=== PATIENT | female | born 1940 | race Caucasian/White ===

== ENCOUNTER 2019-08-09 09:40 | Emergency (ER) | payer MEDICARE, MEDICAID, SELFPAY ==
[2019-08-09] VITALS (16 sets, daily range): BP systolic 142–178; BP diastolic 54–69; PULSE 46–63; RESP 11–22; TEMP 36.5; O2SAT 95–98
--- NOTE | 2019-08-09 09:41 | W.ED.GENAD ---
Discharge Plan Disposition Patient Disposition: HOME Condition: Good Discharge Details Chief Complaint: GenMedical Clinical Impression: Acute dehydration, Gastritis Primary Care Provider: Shruthi Joya ED Provider: Singh Carter Home Meds and New Rx's Prescriptions: Continued tetrahydrozoline [Visine] 0.05 % Drops 1 drp OPHTHALMIC (EYE) TID RF: 0 amlodipine 2.5 mg Tablet 2.5 mg PO DAILY RF: 0 garlic 1,500 mg Capsule 1,500 mg PO QPC RF: 0 lorazepam 0.5 mg Tablet 0.5 mg PO BID PRNRF: 0 pantoprazole 40 mg Tablet,Delayed Release (Dr/Ec) 40 mg PO DAILY RF: 0 diphenhydramine HCl [Benadryl] 25 mg Capsule 25 mg PO Q6-12H RF: 0 lisinopril 40 mg Tablet 40 mg PO DAILY RF: 0 fluticasone propionate 50 mcg/actuation [place],Suspension 1 spray INTRANASAL DAILY RF: 0 atenolol 50 mg Tablet 50 mg PO DAILY RF: 0 escitalopram oxalate 5 mg/5 mL Solution 5 mg PO DAILY RF: 0 cholecalciferol (vitamin D3) [Vitamin D3] 2,000 unit Tablet 2,000 unit PO DAILY RF: 0 Discharge Instructions Instructions: Gastritis (ED), Dehydration (ED) Additional Instructions: Please make sure you are drinking plenty of fluids throughout the day. Please take the Carafate that your primary care provider has prescribed. Please avoid any spicy foods. If you notice any worsening of your symptoms, or any new symptoms such as vomiting, diarrhea, fever, chills, shortness of breath, chest pain, numbness, weakness, or fainting , please return immediately to the emergency department for reevaluation. Please follow up with your primary care provider as soon as possible for reassessment and reevaluation. As always, it was a pleasure participating in your medical care today. Referrals: Shruthi Joya [Primary Care Provider] - Medical Decision Making This is a 78-year-old female with a past medical history of diabetes, hypertension, high cholesterol, previous breast and uterine cancer with hysterectomy and breast surgery who presents today for evaluation of fatigue. 10 days ago the patient syncopized, she refused EMS transport at that time, since then she has had notable weakness, decrease in appetite, epigastric pain, mild dizziness and lightheadedness. She has had no vomiting or diarrhea. She has had some mild weight loss. She denies chest pain, chest heaviness, chest tightness, or repeat episodes of syncope. She denies any tearing or ripping sensation in her chest. She has no other complaints in particular at this time. She denies any other modifying factors. She denies any dysuria, hematuria, increased urinary frequency, melena, dark tarry stool. Exam demonstrates an obese female with no signs of significant trauma, no evidence of significant head trauma, no focal neurologic deficits. Symptoms are concerning though for various etiologies with her history of cancer new malignancy certainly on the differential, including in the head. Will evaluate for cardiac dysrhythmia or abnormality, gently rehydrate and reassess. Also of note she does have a notable family exposure of mono, she is requesting testing for this which I feel is certainly reasonable. 11:49 AM On reassessment patient is feeling much better, after fluids she feels much more energetic, feels well. Laboratory work-up demonstrates no significant abnormality, white count minimally elevated at 11.27, no significant bandemia. Electrolytes normal, renal function stable, lactate troponin proBNP and TSH and lipase all normal. Urinalysis shows negative nitrites and negative leuk esterase. Patient feels well and feels ready to go home. CT scan of the abdomen per radiology demonstrates no acute process, there is a small lesion in the liver, this may be new. Do recommend outpatient follow-up. CT of the head is negative for acute process. Chest x-ray unremarkable. At this time with the benign work-up, no evidence of acute life-threatening etiology, I do feel that her symptoms may be secondary to mild dehydration. Mild stomach ulcer. She has been given a prescription for Carafate already she is just not yet had a chance to fill it. Will recommend continuation of this. Discussed red flags for which to return. I have extensively reviewed the treatment plan and discharge instructions with the patient and their family. I have addressed all patient concerns at this time. The patient and family was made aware of what symptoms to monitor for that would warrant a return to the emergency department. Discussed the plan with the patient and family, they demonstrate verbal understanding and agreement with our assessment and plan at this time. Additionally with a negative cardiac work-up, and the longevity of her symptoms her symptoms are clinically inconsistent with ACS. HPI General Date/Time Provider Initiated Documentation: 08/09/19 09:40. HPI Narrative: This is a 78-year-old female with a past medical history of diabetes, hypertension, high cholesterol, previous breast and uterine cancer with hysterectomy and breast surgery who presents today for evaluation of fatigue. 10 days ago the patient syncopized, she refused EMS transport at that time, since then she has had notable weakness, decrease in appetite, epigastric pain, mild dizziness and lightheadedness. She has had no vomiting or diarrhea. She has had some mild weight loss. She denies chest pain, chest heaviness, chest tightness, or repeat episodes of syncope. She denies any tearing or ripping sensation in her chest. She has no other complaints in particular at this time. She denies any other modifying factors. She denies any dysuria, hematuria, increased urinary frequency, melena, dark tarry stool. Related Data Home Medications Medication Instructions Recorded Confirmed amlodipine 2.5 mg PO DAILY 08/09/19 08/09/19 atenolol 50 mg PO DAILY 08/09/19 08/09/19 cholecalciferol (vitamin D3) 2,000 unit PO DAILY 08/09/19 08/09/19 [Vitamin D3] diphenhydramine HCl [Benadryl] 25 mg PO Q6-12H 08/09/19 08/09/19 escitalopram oxalate 5 mg PO DAILY 08/09/19 08/09/19 fluticasone propionate 1 spray INTRANASAL DAILY 08/09/19 08/09/19 garlic 1,500 mg PO QPC 08/09/19 08/09/19 lisinopril 40 mg PO DAILY 08/09/19 08/09/19 lorazepam 0.5 mg PO BID PRN 08/09/19 08/09/19 pantoprazole 40 mg PO DAILY 08/09/19 08/09/19 tetrahydrozoline [Visine] 1 drp OPHTHALMIC (EYE) TID 08/09/19 08/09/19 Allergies Allergy/AdvReac Type Severity Reaction Status Date / Time amoxicillin [From Augmentin] Allergy Skin Rash Unverified 08/09/19 10:23 clavulanic acid Allergy Skin Rash Unverified 08/09/19 10:23 [From Augmentin] lactose Allergy Other (See Unverified 08/09/19 10:23 Comment) penicillin V Allergy Skin Rash Unverified 08/09/19 10:23 atorvastatin AdvReac Other (See Unverified 08/09/19 10:23 Comment) buspirone [From BuSpar] AdvReac Other (See Unverified 08/09/19 10:23 Comment) caffeine AdvReac Other (See Unverified 08/09/19 10:23 Comment) doxycycline AdvReac Other (See Unverified 08/09/19 10:23 Comment) erythromycin base AdvReac Other (See Unverified 08/09/19 10:23 Comment) esomeprazole [From Nexium] AdvReac Headache Unverified 08/09/19 10:23 ezetimibe [From Zetia] AdvReac Diarrhea Unverified 08/09/19 10:23 fexofenadine AdvReac Other (See Unverified 08/09/19 10:23 Comment) gluten AdvReac Other (See Unverified 08/09/19 10:23 Comment) hydrochlorothiazide AdvReac Other (See Unverified 08/09/19 10:23 Comment) loratadine AdvReac Other (See Unverified 08/09/19 10:23 Comment) sertraline AdvReac Other (See Unverified 08/09/19 10:23 Comment) Sulfa (Sulfonamide AdvReac Nausea Unverified 08/09/19 10:23 Antibiotics) Review of Systems All systems reviewed & are unremarkable except as noted in HPI and below PFSH Social History Smoking/Tobacco Use Status: Never Alcohol Intake: never Drug use: Never Substance use type: does not use Do you feel safe at home: Yes Do you feel safe in your relationship?: Yes Exam Narrative Exam Narrative: 1.Const: Well-nourished, Well-developed, appearing stated age, obese 2.Eyes: PERRL, no conjunctival injection, and symmetrical lids. 3.ENT: Atraumatic external nose and ears. Dry MM. Neck: Symmetric, trachea midline, No thyromegaly. 4.CVS: +S1/S2, No murmurs or gallops. Peripheral pulses 2+ and equal in all extremities. Brisk capillary refill in all extremities. 5.RESP: Unlabored respiratory effort. Clear to auscultation bilaterally. No wheezes rales or rhonchi 6.GI: Soft, Nondistended, No hepatosplenomegaly. No guarding or rebound. Mild to moderate epigastric pain, right upper quadrant, and left upper quadrant pain reproducible on exam. 7.MSK: Normocephalic/Atraumatic, Extremities w/o deformity or ttp No cyanosis or clubbing, Normal movement of all extremities 8.Skin: Warm, Dry. No rashes or lesions. 9.Neuro: credit manager II-XII grossly intact. Sensation grossly intact, no focal neurologic deficits. No ataxia. 10.Psych: (AAO) x3. Appropriate mood and affect
[2019-08-09 10:20] LABS: Abs Immature Grans 0.04 k/cumm (0.0-0.09); Absolute Basophil Count 0.03 k/cumm (0.0-0.2); Absolute Eosinophil Count 0.02 k/cumm (0.0-0.7); Absolute Monocyte Count 0.78 k/cumm (0.11-0.7); Basophils % 0.3; Eosinophils % 0.2; HCT 43.2 % (36.0-46.0); HGB 14.5 g/dL (12.0-15.5); Immature Grans % 0.4 %; Lymphocytes % 13.8; Mean Corp. HGB Concentration 33.6 g/dL (32.0-36.0); Mean Corpuscular Hemoglobin 30.7 pg (27.0-33.0); Mean Corpuscular Volume 91.5 fL (80-95); Mean Platelet Volume 9.9 fL (8.0-11.0); Monocytes % 6.9; Neutrophils % 78.4; Platelet Count 392 x1000/uL (130-400); RBC 4.72 m/cumm (4.00-5.20); RBC Distribution Width 12.7 % (11.7-14.6); White Blood Cell Count 11.27 k/cumm (4.4-10.8)
[2019-08-09] MEDS: Normal Saline 500 ML IV (10:25)
[2019-08-09 10:27] LABS: Mono Screening Negative (Negative)
[2019-08-09 10:30] LABS: Absolute Lymphocyte Count 1.56 k/cumm (1.2-3.4); Absolute Neutrophil Count 8.84 k/cumm (1.2-6.7)
[2019-08-09 10:41] LABS: ALT 22 U/L (14-59); AST 20 U/L (15-37); Albumin 3.8 g/dL (3.4-5.0); Alkaline Phosphatase 74 U/L (46-116); Anion Gap 11.5 mmol/L (3-11); BUN 14 mg/dL (7-18); Bilirubin, Total 0.6 mg/dL (0.2-1.0); CO2 25.5 mmol/L (21.0-32.0); CREATININE 0.59 mg/dL (0.55-1.02); Calcium 9.2 mg/dL (8.5-10.1); Chloride 101 mmol/L (98-107); Glucose 104 mg/dL (74-106); Lipase 138 U/L (73-393); NT-proBNP 188 pg/mL (<300); Potassium 4.2 mmol/L (3.5-5.1); Sodium 138 mmol/L (136-145); TSH (W/Ref FT4) 2.27 uIU/mL (0.36-3.74); Total Protein 7.6 g/dL (6.4-8.2)
[2019-08-09 10:42] LABS: Troponin I < 0.05 ng/Ml (<0.06)
[2019-08-09 10:54] LABS: Bilirubin Negative (Negative); Blood Trace-intact (Negative); Clarity Clear (Clear); Glucose Negative (Negative); Ketones 15 mg/dL (Negative); Leukocyte Esterase Negative (Negative); Nitrite Negative (Negative); Urobilinogen 0.2 EU/dL (Up TO 0.2)
--- NOTE | 2019-08-09 11:02 | DI.CT_ITS ---
EXAM: CT HEAD WO CLINICAL HISTORY: syncope 10 days ago, fall, now confusion COMPARISON: No exams were available for comparison FINDINGS: Ventricles and sulci are consistent with the patient's age. No acute intracranial hemorrhage or midl ine shift is present. Ventricles are intact. The basilar cisterns are patent. Calvarium is intact. There is mucosal thickening in the left sphenoid sinus. The remaining visualized paranasal sinuses are clear. No fluid levels are seen. The mastoid air cells are well pneumatized. IMPRESSION: No acute intracranial process.
--- NOTE | 2019-08-09 11:05 | DI.CT_ITS ---
EXAM: CT ABDOMEN PELVIS W CLINICAL HISTORY: epigastric pain,wt loss,IBS,hx of uterine breastCA. TECHNIQUE: Imaging Protocol: Axial computed tomography images with coronal and sagittal reformatted images were created and reviewed CONTRAST MATERIAL: Intravenous: Omnipaque 350 Contrast volume:97 mL Oral: No COMPARISON: No exams were available for comparison FINDINGS: ABDOMEN: Lung Bases: Normal where visualized. Liver: Normal density. There is a small cyst in the posterior segment of the right lobe of the liver. There is a round well-circumscribed hypodense lesion in the left lobe of the liver. It is indeterm inate. Gallbladder and biliary tract: Status post cholecystectomy. Dilatation of the extrahepatic bile duct s. This may be related to the cholecystectomy. Pancreas: Normal density, no abnormal calcifications or inflammatory process. Spleen: Normal. Kidneys: Normal size, contour and axis. No radiodense stones or obstructive uropathy. Bilateral renal cysts. No solid renal mass. Adrenal glands: No masses seen. Abdominal Aorta: Atherosclerosis. No aneurysmal dilatation. Incidental note is made of a circum aor tic left renal vein. PELVIS: Bladder: Symmetric distention, no gross wall thickening. Bowel: Colonic diverticulosis but no evidence of acute diverticulitis. No evidence of acute appendic itis. No evidence of bowel obstruction or inflammation. Small hiatal hernia. Peritoneal cavity: No ascites, collection or mesenteric inflammatory response. Moderate-sized fat con taining umbilical hernia Bones: Degenerative changes. Reproductive organs: Status post hysterectomy. Lymph nodes: Unremarkable. Impression: 1. No evidence of an acute abdominal or pelvic process. 2. Hypodense lesion seen in the left lobe of the liver. It is too small for further characterization . Follow-up as clinically appropriate. 3. Status post cholecystectomy and hysterectomy. 4. Colonic diverticulosis but no evidence of acute diverticulitis. 5. These findings were discussed with the emergency department on the date of the examination. DATA REPOSITORY: All CT scans at this facility are submitted to the National Radiology Data Registry (NRDR) Dose Index Registry (DIR) with the [employer] ([employer]). RADIATION OPTIMIZATION: All CT scans at this facility use at least one of these dose optimization te chniques: automated exposure control; mA and/or kV adjustment per patient size (includes targeted exa ms where dose is matched to clinical indication); or iterative reconstruction.
[2019-08-09] MEDS: Omnipaque 350 MG/ML 100 ML BTL IJ (11:13)
--- NOTE | 2019-08-09 11:16 | DI.RAD_ITS ---
EXAM: XR CHEST 2V PA LATERAL INDICATION: fatigue, wt loss, hx of uterine Cancer, r/o mass COMPARISON: No exams were available for comparison TECHNIQUE: 2D digital imaging was performed. FINDINGS: The heart size and pulmonary vasculature are within normal limits. The lungs are clear. No effusion or pneumothorax is identified. There are degenerative changes seen in the spine and the shoulders b ilaterally. There are surgical clips in the right upper quadrant of the abdomen consistent with prio r cholecystectomy. IMPRESSION: No acute pulmonary process.
[2019-08-09] MEDS: Sucralfate 1 GM TAB PO (12:07)
[2019-08-09 13:40] LABS: C & S Indicated? No/Sq. Contamination; Epithelial Cells Many HPF (Negative)
== END 2019-08-09 12:23 | disposition home or self-care (01) ==
PROVIDERS: Emergency Provider Student in an Organized Health Care Education/Training Program; PCP Nurse Practitioner Family
DX: E86.0 Dehydration (principal); K29.70 Gastritis, unspecified, without bleeding; I10 Essential (primary) hypertension; E11.9 Type 2 diabetes mellitus without complications
CPT/HCPCS: 80053; 83690; 93005; 96360; 99285; 70450; 71046; 74177; 81003; 81015; 83605; 83880; 84443; 84484; 85025; 86308; 93010; 99284; J3490

== ENCOUNTER 2019-08-14 12:25 | Observation (INO) | payer MEDICARE, MEDICAID, SELFPAY ==
[2019-08-14 12:33] VITALS: BP 179/66; PULSE 61; RESP 16; TEMP 37; O2SAT 97
--- NOTE | 2019-08-14 12:33 | ED.GENADUL_ITS ---
Discharge Plan Disposition Patient Disposition: [facility] INPATIENT Condition: Stable Discharge Details Chief Complaint: GenMedical Clinical Impression: Dehydration, Poor appetite Primary Care Provider: Shruthi Joya ED Provider: Milagros Marie Home Meds and New Rx's Prescriptions: No Action amlodipine 2.5 mg Tablet 2.5 mg PO DAILY RF: 0 garlic 1,500 mg Capsule 1,500 mg PO QPC RF: 0 lorazepam 0.5 mg Tablet 0.5 mg PO BID PRNRF: 0 diphenhydramine HCl [Benadryl] 25 mg Capsule 25 mg PO Q6-12H RF: 0 lisinopril 40 mg Tablet 40 mg PO DAILY RF: 0 fluticasone propionate 50 mcg/actuation [place],Suspension 1 spray INTRANASAL DAILY RF: 0 atenolol 50 mg Tablet 50 mg PO DAILY RF: 0 cholecalciferol (vitamin D3) [Vitamin D3] 2,000 unit Tablet 2,000 unit PO DAILY RF: 0 folic acid 400 mcg Tablet 0.4 mg PO DAILY RF: 0 Medical Decision Making 1245 -- 78-year-old female with a history of previous breast and uterine cancer as well as a history of PUD, hypertension hyperlipidemia presents with poor appetite and fatigue for the past 2 weeks and episode of anxiety at home today. She states her anxiety feels like a knot in her stomach . She denies any chest pain or shortness of breath, fever, cough, vomiting. She does admit to intermittent episodes of diarrhea. She was seen here 5 days ago for the same complaint and had unremarkable labs and imaging and improved after fluids and discharged home. She was advised to take Carafate and follow-up with PCP for referral possible endoscopy for a possible ulcer. She states she stopped taking the Carafate because it produced too much gas.. She states she started Lexapro within the last week and was taken off this medicine due to these above symptoms by her PCP. She states she has been drinking fluids but has no appetite for eating. She does admit to stress at home. Vitals within normal limits. Afebrile. She appears nontoxic. Lungs clear. Abdomen soft nontender. EKG notes a rate of 53, sinus with no acute ST ischemic changes. Differential diagnosis includes dehydration, UTI, electrolyte abnormality. She had a CT head, chest x-ray as well as abdominal and pelvis CT 5 days ago which were negative. Do not see indication for repeat imaging at this time. Will place an IV, screening labs, urinalysis and give fluids, Pepcid, Zofran and GI cocktail and reassess. 1510 --labs reviewed. Anion gap 12. Ketones in urine. Patient still admits to fatigue and no appetite. She has no complaint of abdominal pain. Patient states she would prefer to stay in the hospital for IV fluids. She does feel that stress and anxiety could be a factor in her poor appetite. She takes Ativan twice daily and believes she could benefit if taking 3 times daily. She does not feel that she can go home as she would likely return when she is unable to eat. 1535 -- d/w hospitalist - accepts pt for admission. Also discussed case with surgery for consideration of possible endoscopy if indicated. Medical Records Medical records reviewed: Yes I reviewed the patient's medical records. Lab Data Lab results reviewed: Yes I reviewed the patient's lab results. Labs: Laboratory Tests Range/Units 08/14/19 08/14/19 08/14/19 13:38 14:20 14:24 WBC (4.4-10.8) k/cumm RBC (4.00-5.20) m/cumm Hgb (12.0-15.5) g/dL Hct (36.0-46.0) % MCV (80-95) fL MCH (27.0-33.0) pg MCHC (32.0-36.0) g/dL RDW (11.7-14.6) % Plt Count (130-400) x1000/uL MPV (8.0-11.0) fL Immature Gran % % Neutrophils % Lymphocytes % Monocytes % Eosinophils % Basophils % Absolute Neutrophils (1.2-6.7) k/cumm Absolute Lymphocytes (1.2-3.4) k/cumm Absolute Monocytes (0.11-0.7) k/cumm Absolute Eosinophils (0.0-0.7) k/cumm Absolute Basophils (0.0-0.2) k/cumm Sodium (136-145) mmol/L 140 Potassium (3.5-5.1) mmol/L 4.0 Chloride (98-107) mmol/L 101 Carbon Dioxide (21.0-32.0) mmol/L 27.0 Anion Gap (3-11) mmol/L 12.0 H BUN (7-18) mg/dL 10 Creatinine (0.55-1.02) mg/dL 0.65 Estimated GFR/1.73 m2 (mL/min/1.73m2) >= 60.00 Glucose (74-106) mg/dL 102 Calcium (8.5-10.1) mg/dL 9.1 Magnesium (1.8-2.4) mg/dL 2.0 Total Bilirubin (0.2-1.0) mg/dL 0.4 AST (15-37) U/L 24 ALT (14-59) U/L 25 Alkaline Phosphatase (46-116) U/L 98 Troponin I (<0.06) ng/Ml 0.06 Total Protein (6.4-8.2) g/dL 7.5 Albumin (3.4-5.0) g/dL 3.8 Lipase (73-393) U/L 150 Urine Color (Yellow) Yellow Urine Clarity (Clear) Clear Urine pH (5-8) 6.5 Ur Specific [place] (1.005-1.025) 1.010 Urine Protein (Negative) mg/dL Negative Urine Ketones (Negative) mg/dL 15 H Urine Blood (Negative) Trace-intact H Urine Nitrite (Negative) Negative Urine Bilirubin (Negative) Negative Urine Urobilinogen (Up TO 0.2) EU/dL 0.2 Ur Leukocyte Esterase (Negative) Negative Urine RBC (0-2) HPF 0-2 Urine WBC (0-5) HPF 0-2 Ur Epithelial Cells (Negative) HPF Many Urine Crystals (Negative) HPF Negative Urine Bacteria (Negative) HPF Moderate Urine Casts (Negative) LPF Negative Urine Mucus (Negative) Negative Ur Culture Indicated? No/sq. contamination Urine Glucose (Negative) mg/dL Negative Range/Units 08/14/19 14:24 WBC (4.4-10.8) k/cumm 9.87 RBC (4.00-5.20) m/cumm 4.87 Hgb (12.0-15.5) g/dL 14.9 Hct (36.0-46.0) % 44.0 MCV (80-95) fL 90.3 MCH (27.0-33.0) pg 30.6 MCHC (32.0-36.0) g/dL 33.9 RDW (11.7-14.6) % 12.8 Plt Count (130-400) x1000/uL 410 H MPV (8.0-11.0) fL 10.2 Immature Gran % % 0.3 Neutrophils % 72.7 Lymphocytes % 19.6 Monocytes % 6.8 Eosinophils % 0.3 Basophils % 0.3 Absolute Neutrophils (1.2-6.7) k/cumm 7.18 H Absolute Lymphocytes (1.2-3.4) k/cumm 1.93 Absolute Monocytes (0.11-0.7) k/cumm 0.67 Absolute Eosinophils (0.0-0.7) k/cumm 0.03 Absolute Basophils (0.0-0.2) k/cumm 0.03 Sodium (136-145) mmol/L Potassium (3.5-5.1) mmol/L Chloride (98-107) mmol/L Carbon Dioxide (21.0-32.0) mmol/L Anion Gap (3-11) mmol/L BUN (7-18) mg/dL Creatinine (0.55-1.02) mg/dL Estimated GFR/1.73 m2 (mL/min/1.73m2) Glucose (74-106) mg/dL Calcium (8.5-10.1) mg/dL Magnesium (1.8-2.4) mg/dL Total Bilirubin (0.2-1.0) mg/dL AST (15-37) U/L ALT (14-59) U/L Alkaline Phosphatase (46-116) U/L Troponin I (<0.06) ng/Ml Total Protein (6.4-8.2) g/dL Albumin (3.4-5.0) g/dL Lipase (73-393) U/L Urine Color (Yellow) Urine Clarity (Clear) Urine pH (5-8) Ur Specific [place] (1.005-1.025) Urine Protein (Negative) mg/dL Urine Ketones (Negative) mg/dL Urine Blood (Negative) Urine Nitrite (Negative) Urine Bilirubin (Negative) Urine Urobilinogen (Up TO 0.2) EU/dL Ur Leukocyte Esterase (Negative) Urine RBC (0-2) HPF Urine WBC (0-5) HPF Ur Epithelial Cells (Negative) HPF Urine Crystals (Negative) HPF Urine Bacteria (Negative) HPF Urine Casts (Negative) LPF Urine Mucus (Negative) Ur Culture Indicated? Urine Glucose (Negative) mg/dL ECG Data Attestation: I personally reviewed and interpreted this ECG (s) as follows: Interpretation: Rate of 53, sinus, no acute ST elevation or depression. NC 142. QTc 428. QRS 84. HPI General Mode of arrival: ambulatory . Date/Time Provider Initiated Documentation: 08/14/19 12:25 . Limitations to Documentation: no limitations . Information obtained by: patient . History of Present Illness 78 year old F presents to the emergency department with the chief complaint of fatigue and poor appetite, Patient started experiencing this week(s) (2) and it has been constant. No relieving factors improve symptom(s), Movement worsens symptoms . Patient notes loss of appetite, malaise and weakness; denies chest pain, cough, diaphoresis, fever/chills, headaches, nausea/vomiting, rash, seizure, shortness of breath and syncope. Patient did receive the following treatments prior to arrival, none Related Data Home Medications Medication Instructions Recorded Confirmed amlodipine 2.5 mg PO DAILY 08/09/19 08/14/19 atenolol 50 mg PO DAILY 08/09/19 08/14/19 cholecalciferol (vitamin D3) 2,000 unit PO DAILY 08/09/19 08/14/19 [Vitamin D3] diphenhydramine HCl [Benadryl] 25 mg PO Q6-12H 08/09/19 08/14/19 fluticasone propionate 1 spray INTRANASAL DAILY 08/09/19 08/14/19 garlic 1,500 mg PO QPC 08/09/19 08/14/19 lisinopril 40 mg PO DAILY 08/09/19 08/14/19 lorazepam 0.5 mg PO BID PRN 08/09/19 08/14/19 folic acid 0.4 mg PO DAILY 08/14/19 08/14/19 Allergies Allergy/AdvReac Type Severity Reaction Status Date / Time amoxicillin [From Augmentin] Allergy Skin Rash Unverified 08/14/19 12:39 clavulanic acid Allergy Skin Rash Unverified 08/14/19 12:39 [From Augmentin] lactose Allergy Other (See Unverified 08/14/19 12:39 Comment) penicillin V Allergy Skin Rash Unverified 08/14/19 12:39 atorvastatin AdvReac Other (See Unverified 08/14/19 12:39 Comment) buspirone [From BuSpar] AdvReac Other (See Unverified 08/14/19 12:39 Comment) caffeine AdvReac Other (See Unverified 08/14/19 12:39 Comment) doxycycline AdvReac Other (See Unverified 08/14/19 12:39 Comment) erythromycin base AdvReac Other (See Unverified 08/14/19 12:39 Comment) esomeprazole [From Nexium] AdvReac Headache Unverified 08/14/19 12:39 ezetimibe [From Zetia] AdvReac Diarrhea Unverified 08/14/19 12:39 fexofenadine AdvReac Other (See Unverified 08/14/19 12:39 Comment) gluten AdvReac Other (See Unverified 08/14/19 12:39 Comment) hydrochlorothiazide AdvReac Other (See Unverified 08/14/19 12:39 Comment) loratadine AdvReac Other (See Unverified 08/14/19 12:39 Comment) sertraline AdvReac Other (See Unverified 08/14/19 12:39 Comment) Sulfa (Sulfonamide AdvReac Nausea Unverified 08/14/19 12:39 Antibiotics) General KATHY: 3 Review of Systems All systems reviewed & are unremarkable except as noted in HPI and below Constitutional Constitutional: Reports as per HPI, Denies chills, Reports fatigue, Denies fever(s) and Reports poor appetite Eyes Eyes: Denies blurry vision ENT Ears, Nose, Mouth, and Throat: Denies dizziness, Denies sore throat and Denies throat swelling Cardiovascular Cardiovascular: Denies chest pain and Denies dyspnea Respiratory Respiratory: Denies cough and Denies dyspnea Gastrointestinal Gastrointestinal: Denies abdominal pain, Denies diarrhea and Denies vomiting Genitourinary Genitourinary: Denies hematuria and Denies dysuria Musculoskeletal Musculoskeletal: Denies back pain and Denies numbness Integumentary/Breasts Skin/Breast: Denies lesions and Denies rash Neurologic Neurologic: Denies dizziness, Denies focal weakness and Denies numbness Endocrine Endocrine: Reports fatigue Allergic/Immunologic Allergic/Immunologic: Denies throat swelling [facility] Medical History (Updated 08/14/19 @ 15:29 by Milagros Marie DO) Breast cancer (Chronic) HTN (hypertension) (Chronic) Hx of hyperlipidemia (Acute) Uterine cancer (Acute) Social History Smoking/Tobacco Use Status: Never Alcohol Intake: never Drug use: Never Substance use type: does not use Do you feel safe at home: Yes Do you feel safe in your relationship?: Yes Exam Const General: cooperative, healthy appearing and no acute distress HENMT Head: normal to inspection Ears: hearing grossly normal bilaterally and external ears normal Face and sinus: normal facial exam Mouth: mucous membranes dry Eyes General: appearance normal, both eyes and all related structures Pupils: PERRL EOM: EOM intact bilaterally Neck Neck: normal visual inspection and No submandibular swelling Lymphatic: no lymphadenopathy noted Chest Chest: normal inspection of the chest and no tenderness Resp Effort & Inspection: normal respiratory effort and able to speak in complete sentences Auscultation: clear to auscultation bilaterally Cardio Rate: regular rate Rhythm: regular rhythm GI Inspection: normal to inspection Palpation: soft, not firm, not rigid and nontender Auscultation: normal bowel sounds Back/Spine/Pelvis Thoracic/Lumbar Spine: thoracic and lumbar spine normal to inspection Skin General skin exam: no rashes or lesions noted Neuro General: alert, awake and oriented x3 Cognition: normal cognition Speech: speech normal Motor: muscle tone normal throughout Sensory Exam: no sensory deficits noted Extrem General: normal to inspection, full ROM, normal capillary refill, no calf tenderness bilaterally and no edema Psych Appearance: grossly normal Mental Status: mental status grossly normal Speech and Movement: speech and movement normal Affect: normal affect
[2019-08-14 13:46] LABS: Bilirubin Negative (Negative); Blood Trace-intact (Negative); Clarity Clear (Clear); Glucose Negative (Negative); Ketones 15 mg/dL (Negative); Leukocyte Esterase Negative (Negative); Nitrite Negative (Negative); Urobilinogen 0.2 EU/dL (Up TO 0.2); pH 6.5 (5-8)
[2019-08-14 14:00] LABS: Bacteria Moderate HPF (Negative); C & S Indicated? No/Sq. Contamination; Casts Negative LPF (Negative); Crystals Negative HPF (Negative); Epithelial Cells Many HPF (Negative); Mucus Negative (Negative); RBC 0-2 HPF (0-2); WBC 0-2 HPF (0-5)
[2019-08-14] MEDS: Ondansetron 4 MG/2 ML VIAL IVP (14:21)
[2019-08-14] MEDS: FAMOTIDINE 20 MG/50 ML BAG 200 MG IVPB (14:22)
[2019-08-14] MEDS: Normal Saline 500 ML IV ×2 (14:23→16:17)
[2019-08-14 14:35] LABS: Abs Immature Grans 0.03 k/cumm (0.0-0.09); Absolute Basophil Count 0.03 k/cumm (0.0-0.2); Absolute Eosinophil Count 0.03 k/cumm (0.0-0.7); Absolute Lymphocyte Count 1.93 k/cumm (1.2-3.4); Absolute Monocyte Count 0.67 k/cumm (0.11-0.7); Absolute Neutrophil Count 7.18 k/cumm (1.2-6.7); Basophils % 0.3; Eosinophils % 0.3; HGB 14.9 g/dL (12.0-15.5); Immature Grans % 0.3 %; Lymphocytes % 19.6; Mean Corp. HGB Concentration 33.9 g/dL (32.0-36.0); Mean Corpuscular Hemoglobin 30.6 pg (27.0-33.0); Mean Corpuscular Volume 90.3 fL (80-95); Mean Platelet Volume 10.2 fL (8.0-11.0); Monocytes % 6.8; Neutrophils % 72.7; Platelet Count 410 x1000/uL (130-400); RBC 4.87 m/cumm (4.00-5.20); RBC Distribution Width 12.8 % (11.7-14.6); White Blood Cell Count 9.87 k/cumm (4.4-10.8)
[2019-08-14 14:49] LABS: ALT 25 U/L (14-59); AST 24 U/L (15-37); Albumin 3.8 g/dL (3.4-5.0); Alkaline Phosphatase 98 U/L (46-116); BUN 10 mg/dL (7-18); Bilirubin, Total 0.4 mg/dL (0.2-1.0); CREATININE 0.65 mg/dL (0.55-1.02); Calcium 9.1 mg/dL (8.5-10.1); Chloride 101 mmol/L (98-107); Glucose 102 mg/dL (74-106); Sodium 140 mmol/L (136-145); Total Protein 7.5 g/dL (6.4-8.2); Troponin I 0.06 ng/Ml (<0.06)
[2019-08-14 15:15] LABS: Lipase 150 U/L (73-393)
[2019-08-14] MEDS: Normal Saline 1,000 ML 75 ML IV (17:35)
[2019-08-14] MEDS: Enoxaparin 40 MG/0.4 ML SYR SC (17:51)
--- NOTE | 2019-08-14 18:17 | HPE_ITS ---
Date of service: 08/14/19 Time of Service: 18:18 Assessment and Plan Assessment and plan (1) Dehydration: Status: Acute Assessment and plan: Mild dehydration based on ketones in her urine. Her BUN and creatinine are normal however. Will give low-dose IV fluids overnight. (2) Poor appetite: Status: Acute Assessment and plan: Marked diminishment of her appetite. Differential includes marked anxiety over family stressors. She could have an occult peptic ulcer for which she is very minimally symptomatic. There is no sign of any active bleeding. We will put her on PPI therapy as a prophylactic measure. We will ask general surgery to see her for consideration of upper endoscopy. The outside possibility of an occult malignancy remains however the CT scan and chest x-ray and head CT do not demonstrate any evidence of a malignancy. History of Present Illness History of Present Illness Chief Complaint: Anorexia/weight loss Narrative: This is a 78-year-old woman who presents with profound anorexia and weight loss. She was seen in the emergency room on 08/09/2019 because of similar symptoms. At that time a chest x-ray was negative, abdominal pelvic CT showed a benign appearing lesion in the liver. A head CT was negative at that time. Her labs were unremarkable. Since that visit she has continued to have no appetite. She is drinking small amounts of fluid. Family is concerned there is ongoing weight loss. She describes significant stressors in that her son was acutely ill and required treatment on a ventilator at [facility]. He is doing better, now has a trach. She describes a significant amount of anxiety. She is on Lorazepam. She q uestions whether she could increase the dose. She had a peptic ulcer in the past and this feels like when I had an ulcer. She has not had bleeding, hemoptysis, hematemesis, hematochezia. She has had a minimal amount of abdominal discomfort. Review of Systems Narrative: As per HPI. 12 pound weight loss in 1 month, otherwise unremarkable. [facility] Medical History (Updated 08/14/19 @ 18:22 by Jung Coleman MD) Breast cancer (Chronic) HTN (hypertension) (Chronic) Hx of hyperlipidemia (Acute) Peptic ulcer of stomach (Acute) Uterine cancer (Acute) Surgical History (Updated 08/14/19 @ 18:22 by Jung Coleman MD) H/O: hysterectomy (Chronic) History of cholecystectomy (Chronic) Social History Smoking/Tobacco Use Status: Never Alcohol Intake: never Drug use: Never Substance use type: does not use Do you feel safe at home: Yes Do you feel safe in your relationship?: Yes Meds Home Medications and Allergies Home Medications Medication Instructions Recorded Confirmed Type amlodipine 2.5 mg PO DAILY 08/09/19 08/14/19 History atenolol 50 mg PO DAILY 08/09/19 08/14/19 History cholecalciferol (vitamin D3) 2,000 unit PO DAILY 08/09/19 08/14/19 History [Vitamin D3] diphenhydramine HCl [Benadryl] 25 mg PO Q6-12H 08/09/19 08/14/19 History fluticasone propionate 1 spray INTRANASAL DAILY 08/09/19 08/14/19 History garlic 1,500 mg PO QPC 08/09/19 08/14/19 History lisinopril 40 mg PO DAILY 08/09/19 08/14/19 History lorazepam 0.5 mg PO BID PRN 08/09/19 08/14/19 History folic acid 0.4 mg PO DAILY 08/14/19 08/14/19 History Allergies Allergy/AdvReac Type Severity Reaction Status Date / Time amoxicillin [From Augmentin] Allergy Skin Rash Unverified 08/14/19 12:39 clavulanic acid Allergy Skin Rash Unverified 08/14/19 12:39 [From Augmentin] lactose Allergy Other (See Unverified 08/14/19 12:39 Comment) penicillin V Allergy Skin Rash Unverified 08/14/19 12:39 atorvastatin AdvReac Other (See Unverified 08/14/19 12:39 Comment) buspirone [From BuSpar] AdvReac Other (See Unverified 08/14/19 12:39 Comment) caffeine AdvReac Other (See Unverified 08/14/19 12:39 Comment) doxycycline AdvReac Other (See Unverified 08/14/19 12:39 Comment) erythromycin base AdvReac Other (See Unverified 08/14/19 12:39 Comment) esomeprazole [From Nexium] AdvReac Headache Unverified 08/14/19 12:39 ezetimibe [From Zetia] AdvReac Diarrhea Unverified 08/14/19 12:39 fexofenadine AdvReac Other (See Unverified 08/14/19 12:39 Comment) gluten AdvReac Other (See Unverified 08/14/19 12:39 Comment) hydrochlorothiazide AdvReac Other (See Unverified 08/14/19 12:39 Comment) loratadine AdvReac Other (See Unverified 08/14/19 12:39 Comment) sertraline AdvReac Other (See Unverified 08/14/19 12:39 Comment) Sulfa (Sulfonamide AdvReac Nausea Unverified 08/14/19 12:39 Antibiotics) Exam Narrative Exam Narrative: Very pleasant female in no apparent distress. She had no respiratory difficulties. Her lungs were completely clear on the right and left. Her heart sounds were regular without apparent murmur. Her abdomen was actually somewhat flabby and overall soft with no tenderness to palpation in all 4 quadrants. The lower extremities showed flabby fat replacement of the tissues, all soft and without any apparent discomfort or abnormality. Her arms were notable for flabby soft tissue with decreased tone. It seems somewhat obvious that she had had some recent weight loss with the amount of loose skin. Results Labs Result diagrams: 08/14/19 14:24 08/14/19 14:24 Labs: Laboratory Results - last 24 hr 08/14/19 08/14/19 08/14/19 13:38 14:20 14:24 WBC RBC Hgb Hct MCV MCH MCHC RDW Plt Count MPV Immature Gran % Neutrophils % Lymphocytes % Monocytes % Eosinophils % Basophils % Absolute Neutrophils Absolute Lymphocytes Absolute Monocytes Absolute Eosinophils Absolute Basophils Sodium 140 Potassium 4.0 Chloride 101 Carbon Dioxide 27.0 Anion Gap 12.0 H BUN 10 Creatinine 0.65 Estimated GFR/1.73 m2 >= 60.00 Glucose 102 Calcium 9.1 Magnesium 2.0 Total Bilirubin 0.4 AST 24 ALT 25 Alkaline Phosphatase 98 Troponin I 0.06 Total Protein 7.5 Albumin 3.8 Lipase 150 Urine Color Yellow Urine Clarity Clear Urine pH 6.5 Ur Specific [place] 1.010 Urine Protein Negative Urine Ketones 15 H Urine Blood Trace-intact H Urine Nitrite Negative Urine Bilirubin Negative Urine Urobilinogen 0.2 Ur Leukocyte Esterase Negative Urine RBC 0-2 Urine WBC 0-2 Ur Epithelial Cells Many Urine Crystals Negative Urine Bacteria Moderate Urine Casts Negative Urine Mucus Negative Ur Culture Indicated? No/sq. contamination Urine Glucose Negative 08/14/19 14:24 WBC 9.87 RBC 4.87 Hgb 14.9 Hct 44.0 MCV 90.3 MCH 30.6 MCHC 33.9 RDW 12.8 Plt Count 410 H MPV 10.2 Immature Gran % 0.3 Neutrophils % 72.7 Lymphocytes % 19.6 Monocytes % 6.8 Eosinophils % 0.3 Basophils % 0.3 Absolute Neutrophils 7.18 H Absolute Lymphocytes 1.93 Absolute Monocytes 0.67 Absolute Eosinophils 0.03 Absolute Basophils 0.03 Sodium Potassium Chloride Carbon Dioxide Anion Gap BUN Creatinine Estimated GFR/1.73 m2 Glucose Calcium Magnesium Total Bilirubin AST ALT Alkaline Phosphatase Troponin I Total Protein Albumin Lipase Urine Color Urine Clarity Urine pH Ur Specific [place] Urine Protein Urine Ketones Urine Blood Urine Nitrite Urine Bilirubin Urine Urobilinogen Ur Leukocyte Esterase Urine RBC Urine WBC Ur Epithelial Cells Urine Crystals Urine Bacteria Urine Casts Urine Mucus Ur Culture Indicated? Urine Glucose Last Vital Signs Temp 37.0 C 08/14/19 12:33 Pulse 61 08/14/19 12:33 Resp 16 08/14/19 12:33 BP 179/66 H 08/14/19 12:33 Pulse Ox 97 08/14/19 12:33
[2019-08-14 18:31] VITALS: BP 175/70; PULSE 56; RESP 17; TEMP 36.5; O2SAT 97
[2019-08-14] MEDS: Acetaminophen 325 MG TAB PO (22:25)
[2019-08-14] MEDS: LORazepam 0.5 MG TAB PO (22:38)
[2019-08-14 23:40] VITALS: BP 104/61; PULSE 48; RESP 17; TEMP 35.9; O2SAT 96
[2019-08-15 06:26] LABS: Abs Immature Grans 0.02 k/cumm (0.0-0.09); Absolute Basophil Count 0.03 k/cumm (0.0-0.2); Absolute Eosinophil Count 0.04 k/cumm (0.0-0.7); Absolute Lymphocyte Count 1.99 k/cumm (1.2-3.4); Absolute Monocyte Count 0.72 k/cumm (0.11-0.7); Absolute Neutrophil Count 4.97 k/cumm (1.2-6.7); Basophils % 0.4; Eosinophils % 0.5; HCT 38.5 % (36.0-46.0); HGB 12.8 g/dL (12.0-15.5); Immature Grans % 0.3 %; Lymphocytes % 25.6; Mean Corp. HGB Concentration 33.2 g/dL (32.0-36.0); Mean Corpuscular Hemoglobin 30.8 pg (27.0-33.0); Mean Corpuscular Volume 92.8 fL (80-95); Mean Platelet Volume 10.4 fL (8.0-11.0); Monocytes % 9.3; Neutrophils % 63.9; Platelet Count 333 x1000/uL (130-400); RBC 4.15 m/cumm (4.00-5.20); RBC Distribution Width 12.8 % (11.7-14.6); White Blood Cell Count 7.77 k/cumm (4.4-10.8)
[2019-08-15 06:35] LABS: Anion Gap 9.4 mmol/L (3-11); BUN 12 mg/dL (7-18); CO2 25.6 mmol/L (21.0-32.0); CREATININE 0.63 mg/dL (0.55-1.02); Chloride 106 mmol/L (98-107); Glucose 84 mg/dL (74-106); Potassium 3.8 mmol/L (3.5-5.1); Sodium 141 mmol/L (136-145)
[2019-08-15] MEDS: Normal Saline 1,000 ML 75 ML IV ×2 (06:47→18:17)
[2019-08-15 08:04] VITALS: BP 122/67; PULSE 55; RESP 17; TEMP 37; O2SAT 99
[2019-08-15] MEDS: Cholecalciferol (Vitamin D3) 1,000 UNIT TAB 2000 UNITS PO (08:07)
[2019-08-15] MEDS: amLODIPine 2.5 MG TAB PO (08:07)
[2019-08-15] MEDS: Lisinopril 20 MG TAB 40 MG PO (08:07)
[2019-08-15] MEDS: Fluticasone NASAL SPRAY 16 GM BTL NS (08:08)
[2019-08-15] MEDS: Normal Saline Flush 10 ML SYR IVP (08:09)
[2019-08-15] MEDS: LORazepam 0.5 MG TAB PO (08:45)
--- NOTE | 2019-08-15 08:51 | SCONE_ITS ---
Date of service: 08/15/19 Time of Service: 08:51 Assessment and Plan Assessment and plan (1) Dehydration: Status: Acute (2) Nausea: Status: Acute (3) Weight loss: Status: Acute Assessment and plan: unexplained wt loss/dehydration/hx of GERD cont on PPI Plan on EGD in am Informed consent is obtained for the procedural (explained in simple layman's terms that the pt and/or family could understand) explaining risks vs benefits and alternatives to the procedure and consequences if we do not do the procedure and need/rational for the procedure. Risks include but are not limited to: bleeding, infection, perforation of esophagus, stomach, colon, small intestines, bronchus or trachea, or PTX. This would necessitate emergency surgery to repair the damage w/ possible ostomy; and other associated complications w/ the required surgery. Also complications of anesthesia including aspiration, NH/CVA/. (4) Peptic ulcer of stomach: Status: Acute (5) Poor appetite: Status: Acute History of Present Illness Narrative: pt seen and examined. Pt was admitted last pm w/ nausea/abdominal pain and wt loss/ dehydration. She has a hx of GERD. She was on zantac, but stopped taking it due to the recall. She was on carafate- but this made her feel full and bloated. She was taking OTC Mylanta- but this contains magnesium adn gives her diarrhea. So she is not on any reflux meds at home. She notes she has not been able to eat- no appetite. no n/v. She has lost wt. She was having lots of H/I. She does not use NSAI's/ASA. she is a non smoker/drinker. Her bowels are regular- no constipation or diarrhea. No blood in stools or dark tarry stools. She has no pain currently. Her GB is out. She has not had a CE recently. labs and CT reviewed. plan on doing egd in am Informed consent is obtained for the procedural (explained in simple layman's terms that the pt and/or family could understand) explaining risks vs benefits and alternatives to the procedure and consequences if we do not do the procedure and need/rational for the procedure. Risks include but are not limited to: bleeding, infection, perforation of esophagus, stomach, colon, small intestines, bronchus or trachea, or PTX. This would necessitate emergency surgery to repair the damage w/ possible ostomy; and other associated complications w/ the required surgery. Also complications of anesthesia including aspiration, NH/CVA/. Consults Consult date: 08/15/19 Requesting physician: Jung Coleman Review of Systems All systems reviewed & are unremarkable except as noted in HPI and below PFSH Medical History Breast cancer (Chronic) HTN (hypertension) (Chronic) Hx of hyperlipidemia (Acute) Nausea (Acute) Peptic ulcer of stomach (Acute) Uterine cancer (Acute) Weight loss (Acute) Surgical History H/O: hysterectomy (Chronic) History of cholecystectomy (Chronic) Social History Smoking/Tobacco Use Status: Never Alcohol Intake: never Drug use: Never Substance use type: does not use Do you feel safe at home: Yes Do you feel safe in your relationship?: Yes Exam Const General: cooperative, comfortable, no acute distress, well developed, well groomed and frail appearing Nutritional Appearance: other (muscle wasting ) Orientation: alert, awake and oriented x3 HENMT Head: normal to inspection Ears: hearing grossly normal bilaterally General nose exam: external nose normal Teeth and gingiva: edentulous Eyes Sclera: sclerae normal Pupils: PERRL Chest Other: clinical breast exam not done Resp Effort & Inspection: normal respiratory effort and able to speak in complete sentences Auscultation: clear to auscultation bilaterally GI Inspection: non-distended, scar and visible herniation Palpation: soft, no guarding, no hepatomegaly, hernia and No ascites Results Last Vital Signs Temp 37.0 C 08/15/19 08:04 Pulse 55 L 08/15/19 08:04 Resp 17 08/15/19 08:04 BP 122/67 08/15/19 08:04 Pulse Ox 99 08/15/19 08:04 Labs Result diagrams: 08/15/19 06:10 08/15/19 06:10 Labs: Laboratory Results - last 24 hr 08/14/19 08/14/19 08/14/19 13:38 14:20 14:24 WBC RBC Hgb Hct MCV MCH MCHC RDW Plt Count MPV Immature Gran % Neutrophils % Lymphocytes % Monocytes % Eosinophils % Basophils % Absolute Neutrophils Absolute Lymphocytes Absolute Monocytes Absolute Eosinophils Absolute Basophils Sodium 140 Potassium 4.0 Chloride 101 Carbon Dioxide 27.0 Anion Gap 12.0 H BUN 10 Creatinine 0.65 Estimated GFR/1.73 m2 >= 60.00 Glucose 102 Calcium 9.1 Magnesium 2.0 Total Bilirubin 0.4 AST 24 ALT 25 Alkaline Phosphatase 98 Troponin I 0.06 Total Protein 7.5 Albumin 3.8 Lipase 150 Urine Color Yellow Urine Clarity Clear Urine pH 6.5 Ur Specific [place] 1.010 Urine Protein Negative Urine Ketones 15 H Urine Blood Trace-intact H Urine Nitrite Negative Urine Bilirubin Negative Urine Urobilinogen 0.2 Ur Leukocyte Esterase Negative Urine RBC 0-2 Urine WBC 0-2 Ur Epithelial Cells Many Urine Crystals Negative Urine Bacteria Moderate Urine Casts Negative Urine Mucus Negative Ur Culture Indicated? No/sq. contamination Urine Glucose Negative 08/14/19 08/15/19 08/15/19 14:24 06:10 06:10 WBC 9.87 7.77 RBC 4.87 4.15 Hgb 14.9 12.8 D Hct 44.0 38.5 MCV 90.3 92.8 MCH 30.6 30.8 MCHC 33.9 33.2 RDW 12.8 12.8 Plt Count 410 H 333 MPV 10.2 10.4 Immature Gran % 0.3 0.3 Neutrophils % 72.7 63.9 Lymphocytes % 19.6 25.6 Monocytes % 6.8 9.3 Eosinophils % 0.3 0.5 Basophils % 0.3 0.4 Absolute Neutrophils 7.18 H 4.97 Absolute Lymphocytes 1.93 1.99 Absolute Monocytes 0.67 0.72 H Absolute Eosinophils 0.03 0.04 Absolute Basophils 0.03 0.03 Sodium 141 Potassium 3.8 Chloride 106 Carbon Dioxide 25.6 Anion Gap 9.4 BUN 12 Creatinine 0.63 Estimated GFR/1.73 m2 >= 60.00 Glucose 84 Calcium 8.0 L Magnesium Total Bilirubin AST ALT Alkaline Phosphatase Troponin I Total Protein Albumin Lipase Urine Color Urine Clarity Urine pH Ur Specific [place] Urine Protein Urine Ketones Urine Blood Urine Nitrite Urine Bilirubin Urine Urobilinogen Ur Leukocyte Esterase Urine RBC Urine WBC Ur Epithelial Cells Urine Crystals Urine Bacteria Urine Casts Urine Mucus Ur Culture Indicated? Urine Glucose
--- NOTE | 2019-08-15 11:32 | PT.INIE ---
Date of service: 08/15/19 Time of Service: 08:44 PT Notes Visit Reasons: DEHYDRATION,POOR APPETITE,HISTORY OF PUD Physical Therapy Inpatient Initial Evaluation Date: 08/15/2019 Referring Doctor: Jung Coleman M.D. PT Orders: PT CONSULT: exacerbation of chronic condition Precautions: Fall. Standard. Activity as tolerated. Patient Profile/Admitting Diagnosis: Pt is a 78-year-old female with a history of PUD, HTN, hyperlipidemia, and breast and uterine cancer, presented to the ER on 08/14/2019 with complaints of a ?knot? in her stomach. She was admitted to the hospital with diagnoses of dehydration and decreased appetite. PMHX: Medical History (Updated 08/14/19 @ 18:22 by Jung Coleman MD) Breast cancer (Chronic) HTN (hypertension) (Chronic) Hx of hyperlipidemia (Acute) Peptic ulcer of stomach (Acute) Uterine cancer (Acute) Surgical History (Updated 08/14/19 @ 18:22 by Jung Coleman MD) H/O: hysterectomy (Chronic) History of cholecystectomy (Chronic) Social History/Home Situation: Pt lives on her own at a senior citizen apartment building, [employer] [employer] [address], in [place]. No stairs to enter or in the apartment. Notes that she has children that live nearby. Equipment Owned/DME: [employer] Subjective: Pt reports that she came to the hospital earlier this month for not feeling well and since then has not been able to do as much as she was previously able. She states that prior to being sick she was doing her own grocery shopping, now her daughter has been doing the shopping for her. Reports that she uses a four-wheeled walker at home for ambulation. She also reports that since being sick at the beginning of the month she has not had much of an appetite and has felt more tired than usual. Notes that she at a small amount of her fruit for breakfast and one slice of toast. Objective: General Observation: IV in L UE. Mental Status: alert and oriented x 4 Pain: 0/10 ROM: Right Upper Extremity: Shoulder Flexion WFL. Shoulder abduction WFL. Elbow flexion WFL. Wrist flexion WFL. Opening and closing of hand WFL. Left Upper Extremity: Shoulder Flexion WFL. Shoulder abduction WFL. Elbow flexion WFL. Wrist flexion WFL. Opening and closing of hand WFL. Right Lower Extremity: Hip flexion WFL. Hip abduction WFL. Knee flexion WFL. Ankle dorsiflexion WFL. Ankle plantarflexion WFL. Left Lower Extremity: Hip flexion WFL. Hip abduction WFL. Knee flexion WFL. Ankle dorsiflexion WFL. Ankle plantarflexion WFL. Strength: Right Upper Extremity: Shoulder flexors 3-/5. Shoulder abductors 3-/5. Elbow flexors 4+/5. Elbow extensors 4/5. Water Pump Installer strong. Left Upper Extremity: Shoulder flexors 3-/5. Shoulder abductors 3-/5. Elbow flexors 4+/5. Elbow extensors 4/5. Water Pump Installer strong. Right Lower Extremity: Hip flexors 4+/5. Hip abductors 5/5. Knee flexors 4+/5. Knee extensors 5/5. Ankle dorsiflexors 5/5. Ankle plantarflexors 5/5. Left Lower Extremity: Hip flexors 4+/5. Hip abductors 5/5. Knee flexors 4+/5. Knee extensors 5/5. Ankle dorsiflexors 5/5. Ankle plantarflexors 5/5. Sensation: Intact as to pain and pressure on bilateral lower extremities. Bed Mobility/Transfers: Rolling independent Supine to sit independent Sit to supine independent Sit to stand supervision Stand to sit supervision Bed to chair supervision Chair to bed supervision Gait: Pt was able to ambulate 100 feet, full weight bearing, using a front-wheeled. Reciprocal gait pattern. Decreased norbert and velocity. After 50 feet of ambulation the pt complained of fatigue, but did not require a rest break and wanted to walk back to the room. She denied dizziness, SOB, chest pain with exertion. Balance: Static Sitting: Normal Dynamic Sitting: Normal Static Standing: Good Dynamic Standing: Fair Special Tests: Mobility Limitations Standardized Measure [facility] AM-PAC 6 clicks Basic Mobility Inpatient Short Form: Raw Score:23 CMS Score: 11% deficit Informed Consent/Education: Patient instructed in purpose of PT consult and plan of care. Assessment: Pt is a 78-year-old female with a history of PUD, HTN, hyperlipidemia, and breast and uterine cancer, presented to the ER on 08/14/2019 with complaints of a ?knot? in her stomach. She was admitted to the hospital with diagnoses of dehydration and decreased appetite. Pt presents to physical therapy with impairment level findings and functional limitations. She would benefit from skilled physical therapy at this time for improved mobility, endurance, and strength. Patient presents with clinical signs and symptoms consistent with current/admitting diagnoses that have resulted to mobility limitations, gait instability, and generalized weakness as demonstrated by the following impairment level findings: 1. Decreased strength to B LE and UE major muscle groups 2. Impaired standing balance 3. Impaired activity tolerance 4. Decreased muscular endurance Impairments are contributing to the following functional limitations: 1. Increased dependence with transfers 2. Inability to safely ambulate without assistive device and physical assistance 3. Increase completion time for mobility ADL performance 4. Increased fall risk 5. Inability to negotiate steps alone safely Patient is assessed as a 43010 moderate complexity based on the following: History: Pt is a 78-year-old female with a history of PUD, HTN, hyperlipidemia, and breast and uterine cancer, presented to the ER on 08/14/2019 with complaints of a ?knot? in her stomach. She was admitted to the hospital with diagnoses of dehydration and decreased appetite. Pt presents with impairment level findings and functional limitations as listed above. AM-PAC raw score of 23 with 11% deficit. Examination: Demonstrable impairment in strength, and balance with underlying impairments and functional limitations as documented above Presentation: Evolving Decision Makin moderate complexity Goals: Goals X1 week 1. Sit-Stand independent 2. Stand-Sit independent 3. Bed-Chair independent 4. Chair-Bed independent 5. Independent gait on level surface with use of least restrictive device for at least 300 feet without report of pain nor dyspnea 6. Independent stair negotiation while holding onto bilateral rails for at least 5 steps without report of pain nor dyspnea 7. Independent with home exercise program 8. Good static and dynamic standing balance/tolerance Plan of Care/Treatment Plan: 1-2x/day, 7 days/week x 1 week. Plan of care has been reviewed with the SUSTAINABILITY ENGINEER providing the service under Physical Therapy direction. Initiate Physical Therapy intervention for strengthening, bed mobility, transfers, gait, stairs, balance training, use of assistive device. DISCHARGE RECOMMENDATIONS: Pt may be discharged home when medically cleared. No equipment needs at this time. TREATMENT CODE/TIME: 68611 x 19 minutes beginning at 8:44 A.M. Thank you very much for this referral. Mulu Prabhakar, OSMANY Doctor of Physical Therapy Student [facility] Supervision provided by Sparkle Kurtz PT, DPT, CLT [facility] [place], [place]
--- NOTE | 2019-08-15 12:07 | PHARADMIT ---
Addendum entered by Hannah Sharp 08/16/19 14:12: Pharmacy Note Subjective Appetite has been better Objective BP 147/79, HR 57, K+ 3.3 Assessment EGD performed this AM -- awaiting biopsies; significant anxiety; had diarrhea - took own immodium she had with her Plan Increased lorazepam to 0.25 TID Awaiting findings from EGD, home if ok Original Note: Admission Pharmacy Clinical Review Code Status Full Code Current Weight 65.5 kg Renally Cleared and Narrow Therapeutic Index Meds CrCl ~62/ml/min using adjusted bw, meds ok QTc Value / Action Taken QTc 428 BP Control, Fever BP 122/67, afebrile Electrolytes reviewed all WNL DVT Prophylaxis lmwh 40mg Opiate Usage / Scheduled Bowel Regimen Ordered none, prn Plt/SCr for Heparin / Enoxaparin plt 333, Scr 0.63 INR for Warfarin n/a H/H stable, WBC/Bands H/H 12.8/38.5, WBC 7.77 Antibiotic appropriateness n/a Cultures and Sensitivities Surgical ABX d/c within 24 hr DM control / Insulin Dosing Heart Failure (Check EF%) (VICTOR HUGO's, B-Block, Diuretics) atenolol, amlodipine, lisinopil IV to PO Switch Home Meds Reviewed Yes, all ok Home Meds Not Ordered Folic acid Comments About a 12 pound wt loss in the past month, has anxiety, pt also feels her symptoms are similar to those she had of a peptic ulcer in past Surgery will perform an EGD in the morning
--- NOTE | 2019-08-15 13:20 | W.NUTCONSULT ---
Date of service: 08/15/19 Time of Service: 13:20 Nutritional Consult ASSESSMENT: 78 year old female admitted with dehydration, anorexia and weight loss of 12 lbs in last month. Hx of peptic ulcer, breast CA and HTN. Current BMI indicates class 1 obesity. Following gluten free, lactose free diet with 100% completion at lunch today. Met with Alyssa today and she said she did not want ensure at this time and prefers eating the meals instead. Estimated needs: 0940-2461 kcal, 60-70 g protein. Needs to complete >75% of meals to meet needs. At high nutritional risk in view of recent significant weight loss and poor intake. Will follow weight and po intake trends and adjust meal plan for optimal intake and weight maintenance. Alyssa reports she has celiac disease and has followed gluten free for many years. Upper endoscopy pending. NUTRITIONAL DIAGNOSIS: dehydration, anorexia, allergic to gluten and lactose INTERVENTION: gluten free, lactose free diet MONITORING AND EVALUATION: po intake, weight trends and labs Time Spent in Nutritional Counseling and Treatment: 15 min spent face to face
[2019-08-15 15:19] VITALS: BP 174/91; PULSE 61; RESP 18; TEMP 36.6; O2SAT 96
--- NOTE | 2019-08-15 15:35 | W.PM.PROGNOT ---
Date of Service Date of service: 08/15/19 Time of Service: 15:35 Assessment and Plan Assessment and plan (1) Nausea: Status: Acute Assessment and plan: Intractable nausea with anorexia. She has a little bit more appetite at this point. Plan is for upper endoscopy to look for occult causes which could include malignancy or dysmotility. (2) Weight loss: Status: Acute Assessment and plan: Weight loss of unknown etiology. Thus far search for an occult malignancy has been negative. (3) Breast cancer: Status: Chronic Assessment and plan: History of breast cancer in 2008. There is been no evidence of recurrence. (4) Peptic ulcer of stomach: Status: Acute Assessment and plan: History of peptic ulcer disease. She is on PPI therapy without much improvement. Upper endoscopy tomorrow to look for an occult peptic ulcer. No sign of active bleeding at this time. (5) Anxiety: Status: Chronic Assessment and plan: Patient has significant anxiety symptoms. Increase her Lorazepam 2.25 mg 3 times daily. Subjective Subjective Interval history since last seen: Patient is overall feeling well. She says she did not sleep all that well last night. She had a couple of episodes of diarrhea after the GI cocktail she received in the emergency room. She decided to take some of her own Imodium she had with her. She ate some breakfast and some lunch today without much trouble. She describes some slight nausea but did not require medication. No vomiting. Seen by general surgery today, Dr. Lafleur, the plan is for upper endoscopy tomorrow. Exam Narrative Exam Narrative: On exam she is lying partially supine in bed without any apparent distress. She has multiple liquids available to her at the bedside. She appears overall well hydrated. She had no respiratory difficulty. Her abdomen was overall soft and nontender to palpation and all 4 quadrants. Objective Objective Clinical Data: Abnormal lab results 08/15/19 08/15/19 Range/Units 06:10 06:10 Absolute Monocytes 0.72 H (0.11-0.7) k/cumm Calcium 8.0 L (8.5-10.1) mg/dL Vital Signs Temperature 36.6 C 08/15/19 15:19 Temperature Source Tympanic 08/15/19 15:19 Pulse 61 08/15/19 15:19 Pulse Rhythm Regular 08/15/19 07:36 Respiratory Rate 18 08/15/19 15:19 Respiratory Effort Non-Labored 08/15/19 07:36 Respiratory Depth Normal 08/15/19 07:36 Respiratory Pattern Normal 08/15/19 07:36 Blood Pressure 174/91 H 08/15/19 15:19 Blood Pressure Position Supine 08/14/19 12:33 Pulse Oximetry 96 08/15/19 15:19 Oxygen Delivery Method Room Air 08/15/19 15:19 Oxygen Flow Rate 0 08/15/19 15:19 Pain Level 0 08/15/19 15:19 Comment 08/15/19 15:19 Intake & Output 08/14/19 08/15/19 08/15/19 23:59 11:59 23:59 Intake Total 750 / 750 1620 / 1860 240 / 1860 Output Total 400 / 400 450 / 1150 700 / 1150 Balance 350 / 350 1170 / 710 -460 / 710 Weight 65 kg 65.5 kg Intake: IV 550 / 550 1500 / 1500 Oral 200 / 200 120 / 360 240 / 360 Output: Urine 400 / 400 450 / 1150 700 / 1150 Other: Urine Color Yellow Yellow Yellow Urine Appearance Clear Clear Clear Urine Odor Normal Normal Stool Size Moderate Stool Characteristics Soft Liquid Brown Voiding Methods Toilet Toilet Toilet Laboratory Results WBC 7.77 k/cumm (4.4-10.8) 08/15/19 06:10 RBC 4.15 m/cumm (4.00-5.20) 08/15/19 06:10 Hgb 12.8 g/dL (12.0-15.5) D 08/15/19 06:10 Hct 38.5 % (36.0-46.0) 08/15/19 06:10 MCV 92.8 fL (80-95) 08/15/19 06:10 MCH 30.8 pg (27.0-33.0) 08/15/19 06:10 MCHC 33.2 g/dL (32.0-36.0) 08/15/19 06:10 RDW 12.8 % (11.7-14.6) 08/15/19 06:10 Plt Count 333 x1000/uL (130-400) 08/15/19 06:10 MPV 10.4 fL (8.0-11.0) 08/15/19 06:10 Immature Gran % 0.3 % 08/15/19 06:10 Neutrophils % 63.9 08/15/19 06:10 Lymphocytes % 25.6 08/15/19 06:10 Monocytes % 9.3 08/15/19 06:10 Eosinophils % 0.5 08/15/19 06:10 Basophils % 0.4 08/15/19 06:10 Absolute Neutrophils 4.97 k/cumm (1.2-6.7) 08/15/19 06:10 Absolute Lymphocytes 1.99 k/cumm (1.2-3.4) 08/15/19 06:10 Absolute Monocytes 0.72 k/cumm (0.11-0.7) H 08/15/19 06:10 Absolute Eosinophils 0.04 k/cumm (0.0-0.7) 08/15/19 06:10 Absolute Basophils 0.03 k/cumm (0.0-0.2) 08/15/19 06:10 Sodium 141 mmol/L (136-145) 08/15/19 06:10 Potassium 3.8 mmol/L (3.5-5.1) 08/15/19 06:10 Chloride 106 mmol/L (98-107) 08/15/19 06:10 Carbon Dioxide 25.6 mmol/L (21.0-32.0) 08/15/19 06:10 Anion Gap 9.4 mmol/L (3-11) 08/15/19 06:10 BUN 12 mg/dL (7-18) 08/15/19 06:10 Creatinine 0.63 mg/dL (0.55-1.02) 08/15/19 06:10 Estimated GFR/1.73 m2 >= 60.00 (mL/min/1.73m2) 08/15/19 06:10 Glucose 84 mg/dL (74-106) 08/15/19 06:10 Calcium 8.0 mg/dL (8.5-10.1) L 08/15/19 06:10 Magnesium 2.0 mg/dL (1.8-2.4) 08/14/19 14:24 Total Bilirubin 0.4 mg/dL (0.2-1.0) 08/14/19 14:24 AST 24 U/L (15-37) 08/14/19 14:24 ALT 25 U/L (14-59) 08/14/19 14:24 Alkaline Phosphatase 98 U/L (46-116) 08/14/19 14:24 Troponin I 0.06 ng/Ml (<0.06) 08/14/19 14:24 Total Protein 7.5 g/dL (6.4-8.2) 08/14/19 14:24 Albumin 3.8 g/dL (3.4-5.0) 08/14/19 14:24 Lipase 150 U/L (73-393) 08/14/19 14:20 Urine Color Yellow (Yellow) 08/14/19 13:38 Urine Clarity Clear (Clear) 08/14/19 13:38 Urine pH 6.5 (5-8) 08/14/19 13:38 Ur Specific [place] 1.010 (1.005-1.025) 08/14/19 13:38 Urine Protein Negative mg/dL (Negative) 08/14/19 13:38 Urine Ketones 15 mg/dL (Negative) H 08/14/19 13:38 Urine Blood Trace-intact (Negative) H 08/14/19 13:38 Urine Nitrite Negative (Negative) 08/14/19 13:38 Urine Bilirubin Negative (Negative) 08/14/19 13:38 Urine Urobilinogen 0.2 EU/dL (Up TO 0.2) 08/14/19 13:38 Ur Leukocyte Esterase Negative (Negative) 08/14/19 13:38 Urine RBC 0-2 HPF (0-2) 08/14/19 13:38 Urine WBC 0-2 HPF (0-5) 08/14/19 13:38 Ur Epithelial Cells Many HPF (Negative) 08/14/19 13:38 Urine Crystals Negative HPF (Negative) 08/14/19 13:38 Urine Bacteria Moderate HPF (Negative) 08/14/19 13:38 Urine Casts Negative LPF (Negative) 08/14/19 13:38 Urine Mucus Negative (Negative) 08/14/19 13:38 Ur Culture Indicated? No/sq. contamination 08/14/19 13:38 Urine Glucose Negative mg/dL (Negative) 08/14/19 13:38
--- NOTE | 2019-08-15 16:12 | PTTR_ITS ---
Date of service: 08/16/19 Time of Service: 04:12 PT Notes Visit Reasons: DEHYDRATION,POOR APPETITE,HISTORY OF PUD Inpatient Physical Therapy Treatment Note [facility] Date: 08/15/2019 PRECAUTIONS: Fall. Standard. Activity as tolerated. SUBJECTIVE: My stomach does not feel good. I ate lunch and it did not feel good. OBJECTIVE: IV in L UE. PAIN: None. BED MOBILITY/TRANSFERS Rolling L/R: Independent Supine-sit: Independent Sit-supine: Independent Sit-stand: Supervision Stand-sit: Supervision Bed-Chair: Supervision Chair-bed: Supervision GAIT Assistive Device: FWW Weight bearing: FWB Assist: SBA Distance: 100 feet Deviation: reciprocal gait. Decreased gait velocity. No increase in abdominal discomfort. THEREX: Tolerated minisquats and heel raises x 10 with no increwase in abdominal discomfort. Assessment: Pt is a 78-year-old female with a history of PUD, HTN, hyperlipidemia, and breast and uterine cancer, presented to the ER on 08/14/2019 with complaints of a ?knot? in her stomach. She was admitted to the hospital with diagnoses of dehydration and decreased appetite. Pt presents to physical therapy with impairment level findings and functional limitations. She would benefit from skilled physical therapy at this time for improved mobility, endurance, and strength. Plan of Care/Treatment Plan: 1-2x/day, 7 days/week x 1 week. Plan of care has been reviewed with the POUCH MAKING MACHINE OPERATOR providing the service under Physical Therapy direction. Initiate Physical Therapy intervention for strengthening, bed mobility, transfers, gait, stairs, balance training, use of assistive device. DISCHARGE RECOMMENDATIONS: Pt may be discharged home when medically cleared. No equipment needs at this time. TREATMENT CODE/TIME: 95730 x 18 minutes beginning at 16:12 PM.
[2019-08-15 17:00] VITALS: BP 131/73; PULSE 60; O2SAT 97
--- NOTE | 2019-08-15 17:07 | INITIAL_ITS ---
- If Service Date Differs Date of service: 08/15/19 Time of Service: 17:07 Care Management Initial Assess REASON FOR HOSPITALIZATION:: Dehydration, poor appettite PAST MEDICAL HISTORY/PAST SURGICAL HISTORY:: Anxiety, weight loss, breast cancer, peptic ulcer, htn, uterine cancer. Surgical hx hysterectomy, cholecystectomy PREVIOUS FUNCTIONAL STATUS/SOCIAL/FAMILY SUPPORTS:: Alyssa lives in a [facility] community in [place], [place]. She has 10 children 9 are living. Alyssa reports a supportive family and she is able to care for herself at home. She does have choices for care moderate needs pending and she depends on her children for t ransporation. She states she uses a walker at home and has been with her primary care practice for 60 years. Alyssa[facility] CURRENT FUNCTIONAL STATUS:: Alyssa is engaged with CM she reports that she has had a large amount of stress over the past year. She has one son that became suddenly ill and is in a facility in [place]. after being [facility]. Alyssa feels that stress has contributed to her weight loss, she also is not able to eat lactose and gluten which she feels limits her choices for food. She declines meals on wheels and feels that it is to difficult to figure out if there is gluten or lactose in the food. ADVANCE DIRECTIVES:: None on file, she will take a packet she states her kervin michelle knows what she would want. Patient does not want to complete on this admission. Has patient been provided with information about the portal?: Yes Did the patient sign up for the portal?: No CODE STATUS:: Full Code INSURANCE COVERAGE / FINANCIAL ISSUES:: Medicare, medicaid CURRENT HOME/COMMUNITY SERVICES/EQUIPMENT:: [place] PRIMARY CARE PHYSICIAN:: Shruthi Joya, [facility] in [facility] POTENTIAL DISCHARGE NEEDS:: Follow up with primary care scheduled prior to discharge PATIENT/FAMILY EDUCATION NEEDS:: Discharge education, limitations and follow up plan of care including ask me three and self management ANTICIPATED BARRIERS TO DISCHARGE:: None TRANSPORTATION:: Via private car with family at time of discharge. PLAN:: Alyssa will be discharged when medically ready per provider. She will not any additional services at time of discharge. CM to continue to provide support discharge planning.
[2019-08-15] MEDS: Simethicone 80 MG CHEW 40 MG PO ×2 (18:09→22:02)
[2019-08-15] MEDS: LORazepam 0.5 MG TAB 0.25 MG PO (18:10)
[2019-08-15] MEDS: Enoxaparin 40 MG/0.4 ML SYR SC (18:10)
[2019-08-15 20:28] VITALS: BP 165/68; PULSE 64; RESP 18; TEMP 35.6; O2SAT 96
[2019-08-15] MEDS: diphenhydrAMINE 25 MG CAP PO (23:02)
[2019-08-16] MEDS: LORazepam 0.5 MG TAB 0.25 MG PO ×2 (06:17→16:35)
[2019-08-16] MEDS: Normal Saline 1,000 ML 75 ML IV (07:05)
[2019-08-16 07:26] LABS: Abs Immature Grans 0.02 k/cumm (0.0-0.09); Absolute Basophil Count 0.03 k/cumm (0.0-0.2); Absolute Lymphocyte Count 1.91 k/cumm (1.2-3.4); Absolute Monocyte Count 0.76 k/cumm (0.11-0.7); Absolute Neutrophil Count 5.98 k/cumm (1.2-6.7); Basophils % 0.3; Eosinophils % 1.1; HCT 40.5 % (36.0-46.0); HGB 13.4 g/dL (12.0-15.5); Immature Grans % 0.2 %; Lymphocytes % 21.7; Mean Corp. HGB Concentration 33.1 g/dL (32.0-36.0); Mean Corpuscular Hemoglobin 30.5 pg (27.0-33.0); Monocytes % 8.6; Neutrophils % 68.1; Platelet Count 350 x1000/uL (130-400); RBC Distribution Width 12.8 % (11.7-14.6)
[2019-08-16 07:40] LABS: Anion Gap 10.7 mmol/L (3-11); BUN 8 mg/dL (7-18); CO2 26.3 mmol/L (21.0-32.0); CREATININE 0.55 mg/dL (0.55-1.02); Calcium 8.3 mg/dL (8.5-10.1); Chloride 107 mmol/L (98-107); Glucose 97 mg/dL (74-106); Potassium 3.3 mmol/L (3.5-5.1); Sodium 144 mmol/L (136-145)
[2019-08-16 07:46] VITALS: BP 147/79; PULSE 57; RESP 17; TEMP 36.6; O2SAT 97
--- NOTE | 2019-08-16 10:02 | CHAPLAIN ---
Alyssa was resting in bed when I visited yesterday. She told me that she is the mother of 10 and has a lot of family support around her. I will check on her today.
--- NOTE | 2019-08-16 10:45 | PT.INNT ---
Date of service: 08/16/19 Time of Service: 10:45 PT Notes Visit Reasons: DEHYDRATION,POOR APPETITE,HISTORY OF PUD 08/16/19 Hold PT this AM due to endoscopy. Kristine Goss, [employer]
--- NOTE | 2019-08-16 11:39 | PDOC.CMDIS ---
- If Service Date Differs Date of service: 08/16/19 Time of Service: 11:39 LACE Index Scoring Tool - Questions: Length of Stay (in days): 2 Acuity (Admit via E.D.?): Yes Comorbidities: Any Tumor E.D. Visits: 2 - Answers: Total Score: 9 Risk of Readmission: Low Risk Care Management Discharge Reason for Hospitalization: Dehydration, poor appettite Discharge Plan: Alyssa is being discharged home she will follow-up with providers as directed. No additional services needed family transport home at time of discharge. Patient/Family Education Needs: Discharge education, limitations, follow-up plan of care, asked me 3 and self-management.
--- NOTE | 2019-08-16 12:37 | STOM_PTH ---
PATIENT: Alyssa Ulloa LOC: U#:[id number] AGE/SX: 78/F ROOM: RE08/14/[address]: Jung Coleman : 1940 BED: A DIS: 08/16/2019 SPEC #: [id number] RECD: 08/16/19 13:15 STATUS: BEATRIZ RECheri #: [id number] MAGALI: 08/16/19 12:[address]: Jung Coleman DEPT: Surgical Specimen RECD BY: Yuliana Guzman ENTERED: 08/16/19 13:17 SP TYPE: STOMACH OTHR DR: Aleksandra Castillo MD Peotone,Alan Avendano Tissues: 1 - BIOPSY BOWEL 2 - STOMACH BIOPSY 3 - STOMACH BIOPSY 4 - ESOPHAGUS BIOPSY 5 - HERNIA SAC,OTHER Procedures: GROSS AND MICRO LEVEL 4 IMMUNOPEROXIDASE STAIN Comments: [id number]
--- NOTE | 2019-08-16 12:53 | W.PM.ENDDOP ---
Date of service: 08/16/19 Time of Service: 12:53 Endoscopy Report DATE OF PROCEDURE: 08/16/19 PRE-OP DIAGNOSIS: abdominal pain/dysphagia/wt loss POST-OP DIAGNOSIS: other (duodenitis-moderate/gastritis-mild/hiatal hernia ) PROCEDURE: EGD w/ bx SURGEON: Linda Lafleur ANESTHESIA: GETA ESTIMATED BLOOD LOSS: 1 PATHOLOGY: other COMPLICATIONS: None DISPOSITION: floor INDICATIONS: see above PROCEDURE DESCRIPTION: After informed consent was obtained the patient was take to the procedure room and placed in a supine position. Monitors were applied and a time out was done. The patients name, date of , procedure type, allergies to medications and metal in their body was reviewed. A bite block was placed and the patient was sedated. Once sedated and comfortable the gastroscope was advanced through the oropharynx which was grossly normal into the esophagus. The proximal and mid-esophagus is noted to be quite tortuous. In the distal esophagus there was to have a mdoerate sized hiatal hernia and a small schatzkies ring at the GE junction. The scope was advanced into the stomach and through the pylorus into the 3rd portion of the duodenum. The duodenum was noted to be red in a striped fashion. And there is no active or old bleeding. No definitive ulcers could be identified. There is no edema or swelling. I am able to get the scope into the fourth portion of the duodenum. There is no obstructions or masses. The papilla is normal.. Biopsies were done . All specimens are retrieved and no bleeding is noted. The scope was retracted back into the stomach and biopsies were done to rule out H. pylori. There is some mild redness around the antrum in a striped fashion. Biopsies are taken. There were no ulcers. The scope was retroflexed. The cardia and fundus were noted to be normal. There sm a hiatal hernia noted. The scope was retracted back into the esophagus and biopsies were done of the GE junction to rule out Rincon's. The Z line was irregular. The GE junction was at 30 cm. The scope was removed and the patient was woken up and taken back to PACU in stable condition.
[2019-08-16] MEDS: Lisinopril 20 MG TAB 40 MG PO (13:27)
[2019-08-16] MEDS: Cholecalciferol (Vitamin D3) 1,000 UNIT TAB 2000 UNITS PO (13:28)
[2019-08-16] MEDS: Simethicone 80 MG CHEW 40 MG PO (13:28)
[2019-08-16] MEDS: amLODIPine 2.5 MG TAB PO (13:28)
[2019-08-16] MEDS: Fluticasone NASAL SPRAY 16 GM BTL NS (13:31)
[2019-08-16 15:37] VITALS: BP 162/78; PULSE 65; RESP 18; TEMP 36.9; O2SAT 96
--- NOTE | 2019-08-16 18:51 | DSE_ITS ---
Date of service: 08/16/19 Time of Service: 18:51 DS: Diagnosis Discharge Diagnosis (1) Dehydration: Status: Acute Asessment and Plan: Mildly dehydrated on admission. Fluid repleted. (2) Nausea: Status: Acute Asessment and Plan: Intermittent nausea especially after eating. No vomiting. (3) Weight loss: Status: Acute Asessment and Plan: Multifactorial. Appears to be a component of anxiety. Mild to moderate gastritis and duodenitis found. Start H2 getachew therapy twice daily. (4) Poor appetite: Status: Acute Asessment and Plan: Still protein calorie deficient intake. Encourage p.o. intake. Monitor weight regularly. Follow-up with PCP. Discharge Plan Disposition Patient Disposition: HOME Condition: Stable Discharge Details Chief Complaint: GenMedical Clinical Impression: Dehydration, Poor appetite Reason For Visit: DEHYDRATION,POOR APPETITE,HISTORY OF PUD Admit Date/Time: 08/14/19 15:42 Admit Provider: Jung Coleman Attending Provider: Jung Coleman Primary Care Provider: Shruthi Joya ED Provider: Milagros Marie Hospital Course Hospital Course: This is a 78-year-old woman who presents with profound anorexia and weight loss. She had been seen previously in the emergency room 08/09/2019 because of similar symptoms. Diagnostic studies at that time showed no significant abnormalities. She continued to have no appetite and reported a 10 pound weight loss over the last few weeks. Family members were increasingly concerned. She was admitted to the MedSurg unit and her in and output were monitored closely. She was able to take calories reasonably well. We increased her Lorazepam to 3 times daily with some improvement in her overall anxiety. She underwent upper endoscopy on 08/16/2019. She was found to have a large hiatal hernia, mild gastritis, mild duodenitis. We discussed anti-acid treatments. She has not tolerated Nexium in the past. Thus far she is only tolerated low- dose famotidine. Working to try to make that twice daily. Increase the lorazepam to 3 times daily. Follow-up with her primary care physician next week. Home Meds and New Rx's Prescriptions: New famotidine [Heartburn Relief (famotidine)] 10 mg tablet 10 mg PO BID Qty: 60 RF: 0 Continued amlodipine 2.5 mg Tablet 2.5 mg PO DAILY RF: 0 garlic 1,500 mg Capsule 1,500 mg PO QPC RF: 0 diphenhydramine HCl [Benadryl] 25 mg Capsule 25 mg PO Q6-12H RF: 0 lisinopril 40 mg Tablet 40 mg PO DAILY RF: 0 fluticasone propionate 50 mcg/actuation [place],Suspension 1 spray INTRANASAL DAILY RF: 0 cholecalciferol (vitamin D3) [Vitamin D3] 2,000 unit Tablet 2,000 unit PO DAILY RF: 0 folic acid 400 mcg Tablet 0.4 mg PO DAILY RF: 0 Changed lorazepam 0.5 mg Tablet 0.25 mg PO TID PRN PRNQty: 0 RF: 0 atenolol 50 mg Tablet 25 mg PO DAILY Qty: 0 RF: 0 Discharge Instructions Instructions: Hiatal Hernia (DC), Gastritis (DC), Duodenitis (DC) Stand Alone Forms: Nursing Discharge Form Referrals: Shruthi Joya [Primary Care Provider] - 08/22/19 9:45 am Activity:: Activity as Tolerated Equipment/Supplies:: No Equipment Needed Diet:: As Tolerated Discharge Orders Discharge Orders: Discharge Order (Routine); Ordered 08/16/19 Ordered By: Jung Coleman Discharge Data Discharge Date/Time-TO BE ENTERED AT DEPARTURE: 08/16/19 17:46 DS: Summary Status at Discharge Functional status at discharge: independent ambulation Overall status at discharge: patient is back to baseline Mental Status: mental status grossly normal Speech and Movement: speech and movement normal Mood: congruent mood Affect: normal affect Time Spent with Patient providing and/or coordinating discharge services: Greater than 30 minutes Exam Narrative Exam Narrative: Day of discharge exam found her to be in good spirits. She had no significant abdominal tenderness to palpation. No guarding or rebound. Psych Mental Status: mental status grossly normal Speech and Movement: speech and movement normal Mood: congruent mood Affect: normal affect DS: Data Vitals/I&O Vitals and I&O: Vital Signs Temperature 36.9 C 08/16/19 15:37 Temperature Source Tympanic 08/16/19 15:37 Pulse 65 08/16/19 15:37 Pulse Rhythm Regular 08/16/19 16:00 Respiratory Rate 18 08/16/19 15:37 Respiratory Effort Non-Labored 08/16/19 16:00 Respiratory Depth Normal 08/16/19 16:00 Respiratory Pattern Normal 08/16/19 16:00 Blood Pressure 162/78 H 08/16/19 15:37 Blood Pressure Position Supine 08/14/19 12:33 Pulse Oximetry 96 08/16/19 15:37 Oxygen Delivery Method Room Air 08/16/19 15:37 Oxygen Flow Rate 0 08/16/19 15:37 Pain Level 0 08/16/19 15:37 Comment 08/15/19 15:19 Intake & Output 08/15/19 08/16/19 08/16/19 23:59 11:59 23:59 Intake Total 1342.5 / 2962.5 960 / 960 Output Total 1550 / 2000 1400 / 1600 200 / 1600 Balance -207.5 / 962.5 -440 / -640 -200 / -640 Weight 66.9 kg Intake: IV 862.5 / 2362.5 960 / 960 Oral 480 / 600 Output: Urine 1550 / 2000 1400 / 1600 200 / 1600 Other: Urine Color Yellow Yellow Pale Urine Appearance Clear Clear Clear Urine Odor Normal None None Comment pt state she has no difficulty voiding Voiding Methods Toilet Toilet Toilet Data Completed and Pending Labs on day of discharge: Labs from last 24 hours 08/16/19 08/16/19 06:45 06:45 WBC 8.80 RBC 4.40 Hgb 13.4 Hct 40.5 MCV 92.0 MCH 30.5 MCHC 33.1 RDW 12.8 Plt Count 350 MPV 11.0 Immature Gran % 0.2 Neutrophils % 68.1 Lymphocytes % 21.7 Monocytes % 8.6 Eosinophils % 1.1 Basophils % 0.3 Absolute Neutrophils 5.98 Absolute Lymphocytes 1.91 Absolute Monocytes 0.76 H Absolute Eosinophils 0.10 Absolute Basophils 0.03 Sodium 144 Potassium 3.3 L Chloride 107 Carbon Dioxide 26.3 Anion Gap 10.7 BUN 8 Creatinine 0.55 Estimated GFR/1.73 m2 >= 60.00 Glucose 97 Calcium 8.3 L [facility] Medical History Bladder prolapse, female, acquired (Acute) Breast cancer (Chronic) HTN (hypertension) (Chronic) Hx of hyperlipidemia (Acute) Nausea (Acute) Peptic ulcer of stomach (Acute) Urinary incontinence concurrent with and due to female genital prolapse (Acute) Uterine cancer (Acute) Weight loss (Acute) Surgical History H/O: hysterectomy (Chronic) History of cholecystectomy (Chronic) Social History Smoking/Tobacco Use Status: Never Alcohol Intake: never Drug use: Never Substance use type: does not use Do you feel safe at home: Yes Do you feel safe in your relationship?: Yes
--- NOTE | 2019-08-17 08:53 | INDS_ITS ---
Date of service: 08/17/19 Time of Service: 08:53 PT Notes Visit Reasons: DEHYDRATION,POOR APPETITE,HISTORY OF PUD Inpatient Physical Therapy Discharge Summary Dates: 08/17/2019 Dates of Service: 08/15/2019 only This is a clinical summary of care provided on the duration of dates listed above. No charge was made in the completion of this documentation. Referring Doctor: Jung Coleman M.D. PT Orders: PT CONSULT: exacerbation of chronic condition Precautions: Fall. Standard. Activity as tolerated. Patient Profile/Admitting Diagnosis: Pt is a 78-year-old female with a history of PUD, HTN, hyperlipidemia, and breast and uterine cancer, presented to the ER on 08/14/2019 with complaints of a ?knot? in her stomach. She was admitted to the hospital with diagnoses of dehydration and decreased appetite. PMHX: Medical History (Updated 08/14/19 @ 18:22 by Jung Coleman MD) Breast cancer (Chronic) HTN (hypertension) (Chronic) Hx of hyperlipidemia (Acute) Peptic ulcer of stomach (Acute) Uterine cancer (Acute) Surgical History (Updated 08/14/19 @ 18:22 by Jung Coleman MD) H/O: hysterectomy (Chronic) History of cholecystectomy (Chronic) Social History/Home Situation: Pt lives on her own at a senior citizen apartment building, [facility], in [place]. No stairs to enter or in the apartment. Notes that she has children that live nearby. Equipment Owned/DME: Rollator Subjective: NT Objective: General Observation: NT Mental Status: NT Pain: NT ROM: Right Upper Extremity: Shoulder Flexion WFL. Shoulder abduction WFL. Elbow flexion WFL. Wrist flexion WFL. Opening and closing of hand WFL. Left Upper Extremity: Shoulder Flexion WFL. Shoulder abduction WFL. Elbow flexion WFL. Wrist flexion WFL. Opening and closing of hand WFL. Right Lower Extremity: Hip flexion WFL. Hip abduction WFL. Knee flexion WFL. A nkle dorsiflexion WFL. Ankle plantarflexion WFL. Left Lower Extremity: Hip flexion WFL. Hip abduction WFL. Knee flexion WFL. Ankle dorsiflexion WFL. Ankle plantarflexion WFL. Strength: Right Upper Extremity: Shoulder flexors 3-/5. Shoulder abductors 3-/5. Elbow flexors 4+/5. Elbow extensors 4/5. Operations Research Manager strong. Left Upper Extremity: Shoulder flexors 3-/5. Shoulder abductors 3-/5. Elbow flexors 4+/5. Elbow extensors 4/5. Operations Research Manager strong. Right Lower Extremity: Hip flexors 4+/5. Hip abductors 5/5. Knee flexors 4+/5. Knee extensors 5/5. Ankle dorsiflexors 5/5. Ankle plantarflexors 5/5. Left Lower Extremity: Hip flexors 4+/5. Hip abductors 5/5. Knee flexors 4+/5. Knee extensors 5/5. Ankle dorsiflexors 5/5. Ankle plantarflexors 5/5. Sensation: Intact as to pain and pressure on bilateral lower extremities. Bed Mobility/Transfers: Rolling independent Supine to sit independent Sit to supine independent Sit to stand independent Stand to sit independent Bed to chair independent Chair to bed independent Gait: Pt was able to ambulate 100 feet, full weight bearing, using a front- wheeled indepednent. Reciprocal gait pattern. Decreased norbert and velocity. After 50 feet of ambulation the pt complained of fatigue, but did not require a rest break and wanted to walk back to the room. She denied dizziness, SOB, chest pain with exertion. Balance: Static Sitting: Normal Dynamic Sitting: Normal Static Standing: Normal Dynamic Standing: Fair Assessment: Pt is a 78-year-old female with a history of PUD, HTN, hyperlipidemia, and breast and uterine cancer, presented to the ER on 08/14/2019 with complaints of a ?knot? in her stomach. She was admitted to the hospital with diagnoses of dehydration and decreased appetite. Pt presents to physical therapy with impairment level findings and functional limitations. She would benefit from skilled physical therapy at this time for improved mobility, endurance, and strength. Patient presented with clinical signs and symptoms consistent with current/admitting diagnoses that have resulted to mobility limitations, gait instability, and generalized weakness as demonstrated by the following impairment level findings: 1. Decreased strength to B LE and UE major muscle groups 2. Impaired standing balance 3. Impaired activity tolerance 4. Decreased muscular endurance Impairments cotninue to contribute to the following functional limitations: 1. Inability to safely ambulate without assistive device and physical assistance 2. Increase completion time for mobility ADL performance 3. Increased fall risk 4. Inability to negotiate steps alone safely Goals: Goals X1 week 1. Sit-Stand independent MET 2. Stand-Sit independent MET 3. Bed-Chair independent MET 4. Chair-Bed independent MET 5. Independent gait on level surface with use of least restrictive device for at least 300 feet without report of pain nor dyspnea NOT MET 6. Independent stair negotiation while holding onto bilateral rails for at least 5 steps without report of pain nor dyspnea MET 7. Independent with home exercise program MET 8. Good static and dynamic standing balance/tolerance MET DISCHARGE RECOMMENDATIONS: Pt may be discharged home when medically cleared. No equipment needs at this time. TREATMENT CODE/TIME: NC. Thank you very much for this referral. Sparkle Kurtz PT, DPT, CLT [facility] [place], [place]
== END 2019-08-16 17:46 | disposition home or self-care (01) ==
LOC: ER 15:58 → MS 16:44
PROVIDERS: Surgery; Admitting Provider Family Medicine; Emergency Provider Physician Assistant; PCP Nurse Practitioner Family; Visit Provider Family Medicine
PROC: 0DJ68ZZ Inspection of Stomach, Via Natural or Artificial Opening Endoscopic (ICD-10-PCS; CPT 43235; principal; 2019-08-16 10:30)
DX: E86.0 Dehydration (principal); R11.0 Nausea; R63.4 Abnormal weight loss; R63.0 Anorexia; K29.80 Duodenitis without bleeding; K44.9 Diaphragmatic hernia without obstruction or gangrene; R41.9 Unspecified symptoms and signs involving cognitive functions and awareness; Z63.79 Other stressful life events affecting family and household; K31.89 Other diseases of stomach and duodenum; K21.0 Gastro-esophageal reflux disease with esophagitis
CPT/HCPCS: 43239; 36415; 80048; 80053; 83690; 88305; 93005; 96361; 96365; 96375; 97162; 97530; 99213; 99219; 99225; 99239; 99252; 99285; J1650; 81003; 81015; 83735; 84484; 85025; 88302; 88361; 93010; 99217; G0378; J2405

== ENCOUNTER 2020-06-16 11:53 | Observation (INO) | payer MEDICARE, MEDICAID, SELFPAY ==
[2020-06-16] VITALS (25 sets, daily range): BP systolic 113–151; BP diastolic 65–81; PULSE 68–114; RESP 16–31; TEMP 35.5–36.6; O2SAT 95–99
--- NOTE | 2020-06-16 11:45 | RT.EKG_ITS ---
APPROVED REPORT Exam: Resting ECG Patient Location: E HR:73 bpm ECG Measurements Heart Rate 73 AXIS NC 147 P 43 QRSd 91 QRS 59 QT 395 T 67 QTc 437 Conclusion Sinus rhythm...normal P axis, V-rate 60- 99. No STEMI. No change from previous. I have reviewed and interpreted ECG and agree with software generated interpretation.
--- NOTE | 2020-06-16 11:55 | ED.GENADUL_ITS ---
Discharge Plan Disposition Patient Disposition: [facility] INPATIENT Condition: Stable Discharge Details Clinical Impression: Chronic nausea, Fatigue, Weakness, Elevated troponin Admit Date/Time: 06/16/20 15:08 Admit Provider: Jace Coello Attending Provider: Jace Coello Primary Care Provider: Shruthi Joya ED Provider: Milagros Marie Discharge Data Discharge Date/Time-TO BE ENTERED AT DEPARTURE: 06/16/20 15:58 Medical Decision Making <Milagros Marie DO - Last Filed: 06/17/20 09:34> 1210 -- 79-year-old female with a history of breast cancer with right mastectomy, uterine cancer with hysterectomy, hypertension, hyperlipidemia presents for fatigue, generalized weakness, nausea and decreased appetite for the past several weeks. Denies any fever or pain. Heart rate 104, remainder vitals within normal limits. She is afebrile and appears nontoxic. She has epigastric and right upper quadrant tenderness otherwise her abdomen is soft. EKG notes a rate of 73, sinus, SC depression noted diffusely. There does not appear to be acute ST elevation and there is no acute change from previous EKG. Patient has poor peripheral access and had multiple IV attempts with nurse and myself without success. Anesthesia called. 1440 --labs reviewed. White blood cell count 11.47. Troponin 0.11. Urinalysis negative but contaminated. Anesthesia able to get a small peripheral IV. Patient reassessed and she feels better. Discussed with patient that I advise she stay for observation overnight and serial troponins and she is agreeable. Patient to go to CT shortly. 1505 --Case discussed with hospitalist accepts patient for admission. Will notify of CT results once available. Will consult [facility] cardiology for recommendations. A full dose aspirin ordered for patient but she states this is on her allergy list and she cannot take it. Aspirin dose not given. 1545 -- Case discussed with [facility] cardiology who recommended no treatment for ACS at this time and agrees with plan for serial troponins, observation and recommends echocardiogram and stress test. CT chest abdomen and pelvis noted multiple chronic findings but no acute findings. Hospitalist notified of updates from [facility] cardiology and CT findings. Medical Records Medical records reviewed: Yes I reviewed the patient's medical records. ECG Data Attestation: I personally reviewed and interpreted this ECG (s) as follows: Interpretation: Rate of 73, sinus, SC depression noted in inferior and anterior leads, No acute ST elevation or depression. No acute significant change from previous EKG. SC 147. QRS 91. QTc 437. <Naveed Barron MD - Last Filed: 06/16/20 16:18> Patient seen by Dr Marie HPI <Milagros Marie DO - Last Filed: 06/17/20 09:34> General Mode of arrival: ambulatory . Date/Time Provider Initiated Documentation: 06/16/20 11:55 . Limitations to Documentation: no limitations . Information obtained by: patient . HPI Narrative: Patient is an 79-year-old female with a history of hypertension, hyperlipidemia, breast cancer with right mastectomy and uterine cancer with hysterectomy presents with nausea and decreased appetite for the last several weeks. She states she feels that throughout the day she has no appetite but this improves in the evening but then returns the next day. Patient denies any fever, cough, chest pain, shortness of breath, abdominal pain or diarrhea. She states she had diarrhea a few days ago but this has since resolved and she has been having normal bowel movements and denies any bleeding. She states her daughter has been helping her at home due to her fatigue and weakness with not eating and states that her daughter is sick with fever and respiratory symptoms. Otherwise patient denies any recent travel, recent known exposure to coronavirus, recent antibiotics. Related Data Home Medications Medication Instructions Recorded Confirmed amlodipine 2.5 mg PO DAILY 08/09/19 06/16/20 cholecalciferol (vitamin D3) 2,000 unit PO DAILY 08/09/19 06/16/20 [Vitamin D3] diphenhydramine HCl [Benadryl] 25 mg PO Q6-12H 08/09/19 06/16/20 fluticasone propionate 1 spray INTRANASAL DAILY 08/09/19 06/16/20 garlic 1,500 mg PO QPC 08/09/19 06/16/20 lisinopril 40 mg PO DAILY 08/09/19 06/16/20 folic acid 0.4 mg PO DAILY 08/14/19 06/16/20 atenolol 25 mg PO DAILY #0 tab 08/16/19 06/16/20 famotidine [Heartburn Relief 10 mg PO BID #60 tab 08/16/19 06/16/20 (famotidine)] lorazepam 0.25 mg PO TID PRN PRN #0 tab 08/16/19 06/16/20 Previous Rx's Medication Instructions Recorded atenolol 25 mg PO DAILY #0 tab 08/16/19 famotidine [Heartburn Relief 10 mg PO BID #60 tab 08/16/19 (famotidine)] lorazepam 0.25 mg PO TID PRN PRN #0 tab 08/16/19 Allergies Allergy/AdvReac Type Severity Reaction Status Date / Time amoxicillin [From Augmentin] Allergy Skin Rash Unverified 06/16/20 13:16 aspirin Allergy Unverified 06/16/20 15:25 clavulanic acid Allergy Skin Rash Unverified 06/16/20 13:16 [From Augmentin] lactose Allergy Other (See Unverified 06/16/20 13:16 Comment) penicillin V Allergy Skin Rash Unverified 06/16/20 13:16 atorvastatin AdvReac Other (See Unverified 06/16/20 13:16 Comment) buspirone [From BuSpar] AdvReac Other (See Unverified 06/16/20 13:16 Comment) caffeine AdvReac Other (See Unverified 06/16/20 13:16 Comment) doxycycline AdvReac Other (See Unverified 06/16/20 13:16 Comment) erythromycin base AdvReac Other (See Unverified 06/16/20 13:16 Comment) esomeprazole [From Nexium] AdvReac Headache Unverified 06/16/20 13:16 ezetimibe [From Zetia] AdvReac Diarrhea Unverified 06/16/20 13:16 fexofenadine AdvReac Other (See Unverified 06/16/20 13:16 Comment) gluten AdvReac Other (See Unverified 06/16/20 13:16 Comment) hydrochlorothiazide AdvReac Other (See Unverified 06/16/20 13:16 Comment) loratadine AdvReac Other (See Unverified 06/16/20 13:16 Comment) sertraline AdvReac Other (See Unverified 06/16/20 13:16 Comment) Sulfa (Sulfonamide AdvReac Nausea Unverified 06/16/20 13:16 Antibiotics) General KATHY: 3 Review of Systems <Milagros Marie DO - Last Filed: 06/17/20 09:34> All systems reviewed & are unremarkable except as noted in HPI and below Constitutional Constitutional: Reports as per HPI, Denies chills and Denies fever(s) Eyes Eyes: Denies blurry vision ENT Ears, Nose, Mouth, and Throat: Denies dizziness, Denies sore throat and Denies throat swelling Cardiovascular Cardiovascular: Denies chest pain and Denies dyspnea Respiratory Respiratory: Denies cough and Denies dyspnea Gastrointestinal Gastrointestinal: Denies abdominal pain, Denies diarrhea, Reports nausea and Denies vomiting Genitourinary Genitourinary: Denies hematuria and Denies dysuria Musculoskeletal Musculoskeletal: Denies back pain and Denies numbness Integumentary/Breasts Skin/Breast: Denies lesions and Denies rash Neurologic Neurologic: Denies dizziness, Denies localized weakness and Denies numbness Allergic/Immunologic Allergic/Immunologic: Denies throat swelling PFSH <Milagros Marie DO - Last Filed: 06/17/20 09:34> Medical History Bladder prolapse, female, acquired Breast cancer HTN (hypertension) Hx of hyperlipidemia Nausea Peptic ulcer of stomach Urinary incontinence concurrent with and due to female genital prolapse Uterine cancer Weight loss Surgical History H/O: hysterectomy History of cholecystectomy Social History Smoking/Tobacco Use Status: Never Smoking risk assessment performed?: Yes Alcohol Intake: never Drug use: Never Substance use type: does not use Do you feel safe at home: Yes Do you feel safe in your relationship?: Yes Exam <Milagros Marie DO - Last Filed: 06/17/20 09:34> Const General: cooperative and no acute distress Orientation: alert, awake and oriented x3 HENMT Head: normal to inspection Ears: hearing grossly normal bilaterally and external ears normal General nose exam: external nose normal Face and sinus: normal facial exam Mouth: oral mucosae normal Teeth and gingiva: dentition normal Throat: posterior oropharynx normal Eyes General: appearance normal, both eyes and all related structures Eyelids: eyelids normal EOM: EOM intact bilaterally Neck Neck: normal visual inspection Lymphatic: no lymphadenopathy noted Chest Chest: normal inspection of the chest Resp Effort & Inspection: normal respiratory effort and able to speak in complete sentences Auscultation: clear to auscultation bilaterally Cardio Rate: regular rate Rhythm: regular rhythm GI Inspection: normal to inspection Palpation: soft, not firm, no guarding, no hepatosplenomegaly, no masses and tender in the epigastrum and in the RUQ Auscultation: normal bowel sounds and hypoactive bowel sounds Skin General skin exam: no rashes or lesions noted Neuro General: patient alert and patient awake Cognition: normal cognition Speech: speech normal Gait: normal gait Motor: muscle tone normal throughout Sensory Exam: no sensory deficits noted Extrem General: normal to inspection, full ROM and capillary refill normal Psych Appearance: grossly normal Mental Status: mental status grossly normal Speech and Movement: speech and movement normal Affect: normal affect Thought Process: normal
[2020-06-16 13:07] LABS: Bilirubin Negative (Negative); Blood Trace-intact (Negative); Clarity Cloudy (Clear); Glucose Negative (Negative); Ketones 40 mg/dL (Negative); Leukocyte Esterase Negative (Negative); Nitrite Negative (Negative); Urobilinogen 0.2 EU/dL (Up TO 0.2); pH 5.5 (5-8)
[2020-06-16 13:19] LABS: Bacteria Moderate HPF (Negative); Epithelial Cells Many HPF (Negative)
[2020-06-16 13:20] LABS: C & S Indicated? No/Sq. Contamination
[2020-06-16 14:09] LABS: Abs Immature Grans 0.03 10^3/uL (0.0-0.06); Absolute Eosinophil Count 0.02 10^3/uL (0.0-0.7); Absolute Lymphocyte Count 2.05 10^3/uL (1.2-3.4); Absolute Monocyte Count 0.56 10^3/uL (0.1-0.8); Basophils % 0.3; Eosinophils % 0.2; HCT 43.1 % (36.0-46.0); HGB 14.7 g/dL (11.2-15.7); Immature Grans % 0.3; Lymphocytes % 17.9; MCH 30.5 pg (27.0-33.0); MCHC 34.1 % (32.0-36.0); MCV 89.4 fL (80-95); MPV 10.5 fL (8.0-11.0); Monocytes % 4.9; Neutrophils % 76.4; Nucleated RBC 0 %; Platelet Count 356 10^3/uL (130-400); RBC 4.82 10^6/uL (3.93-5.22); RDW 12.2 % (11.7-14.6); RDW-SD 39.9 fL; WBC 11.47 10^3/uL (4.4-10.8)
[2020-06-16 14:12] LABS: Absolute Basophil Count 0.03 10^3/uL (0.0-0.2); Absolute Neutrophil Count 8.76 10^3/uL (1.2-6.7)
[2020-06-16 14:19] LABS: INR 1.1 (0.9-1.1); PTT Activated 25.4 sec (21.0-27.5); Prothrombin Time 11.5 sec (9.3-11.0)
[2020-06-16] MEDS: Normal Saline 500 ML IV (14:21)
[2020-06-16] MEDS: Ondansetron 4 MG/2 ML VIAL IVP (14:21)
[2020-06-16] MEDS: FAMOTIDINE 20 MG/50 ML BAG 200 MG IVPB (14:22)
[2020-06-16 14:37] LABS: ALT 30 U/L (14-59); AST 26 U/L (15-37); Alkaline Phosphatase 58 U/L (46-116); Anion Gap 12.3 mmol/L (3-11); BUN 14 mg/dL (7-18); Bilirubin, Total 0.5 mg/dL (0.2-1.0); CO2 22.7 mmol/L (21.0-32.0); CREATININE 0.69 mg/dL (0.55-1.02); Calcium 9.2 mg/dL (8.5-10.1); Chloride 98 mmol/L (98-107); Glucose 87 mg/dL (74-106); Lipase 335 U/L (73-393); Magnesium 1.8 mg/dL (1.8-2.4); Potassium 4.3 mmol/L (3.5-5.1); Sodium 133 mmol/L (136-145); Total Protein 7.7 g/dL (6.4-8.2)
[2020-06-16 14:39] LABS: Troponin I 0.11 ng/mL (<0.06)
[2020-06-16] MEDS: Omnipaque 350 MG/ML 100 ML BTL IJ (14:52)
[2020-06-16] MEDS: Normal Saline - Diluent 50 ML VIAL IV (14:53)
[2020-06-16] MEDS: Normal Saline Flush 10 ML SYR IVP ×2 (14:54→16:31)
--- NOTE | 2020-06-16 15:05 | DI.CT_ITS ---
EXAM: CT CHEST/ABD/PEL W CLINICAL HISTORY: epigastric abd pain, nausea, r/o acute process TECHNIQUE: Imaging Protocol: Axial computed tomography images with coronal and sagittal reformatted images were created and reviewed CONTRAST MATERIAL: Intravenous: Omnipaque 350 Contrast volume:100 cc Oral: yes / no COMPARISON: CT CT ABDOMEN PELVIS W from 08/09/2019 FINDINGS: CHEST: There are no confluent infiltrates nor pleural effusions. No distinct pulmonary nodules.. There are n o focal findings in the trachea and mainstem bronchi. There is no hilar nor mediastinal adenopathy. There is no axillary adenopathy. Visualized thyroid unr emarkable. Heart Heart size normal. There is no pericardial effusion. Caliber of the thoracic aorta is within normal l imits. No lytic osseous lesions identified in the chest. ABDOMEN: There is no ascites in the upper abdomen. Gallbladder is surgically absent. Mild dilatation the CBD a nd intrahepatic ducts is noted, unchanged. In the right hepatic lobe there is an unchanged 10 x 8 mil limeter hypodensity which is probably benign cyst. No additional lesions evident in the liver. In the pancreas there are 2 cystic lesions again identified. One of these is at the level of the head -neck and measures 1.5 by 0.9 centimetres. The other is in the anterior body and measures 1.0 x 0.9 c entimetres. These exhibit minimal change from the prior study of July 2019. 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 Spleen is not enlarged. Splenic and portal veins are patent. No ad renal masses. Small cysts are noted in both kidneys. The largest is in the lateral cortex of the righ t kidney and measures 1.6 x 1.3 centimetres. Abdominal aorta is calcified but not enlarged. There is no retroperitoneal-paronychia adenopathy. Is anterior abdominal wall umbilical fat containing hernia. Does not contain bowel loops. There is no oliver wel obstruction or free air nor abscess. PELVIS: There is sigmoid diverticulosis without evidence of acute diverticulitis. No obvious appendicitis nor free fluid in the pelvis. No intrapelvic nor inguinal adenopathy. Bladder cystocele is noted uterus is surgically absent. The no abnormal adnexal masses. No lytic osseous lesions identified. IMPRESSION: No significant pulmonary findings. No pleural effusions. No intrathoracic adenopathy. Gallbladder surgically absent. There is some dilatation of the biliary tree which is unchanged. Two cystic lesions in the pancreas measuring 15 x 9 millimeters and 10 x 9 millimeters, exhibiting mi nimal if any significant change when compared to the July [address] scans. 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 If clinically indicated follow-up MRI can be performed. Sigmoid diverticulosis. No evidence of acute diverticulitis. Urinary bladder cystocele noted. Uterus surgically absent. No abnormal adnexal masses. No free fluid. RADIATION DOSE DELIVERED: 757.91mGy.cm Total DLP DATA REPOSITORY: All CT scans at this facility are submitted to the National Radiology Data Registry (NRDR) Dose Index Registry (DIR) with the [employer] (A[employer]). RADIATION OPTIMIZATION: All CT scans at this facility use at least one of these dose optimization te chniques: automated exposure control; mA and/or kV adjustment per patient size (includes targeted exa ms where dose is matched to clinical indication); or iterative reconstruction.
[2020-06-16] MEDS: Normal Saline 1,000 ML 75 ML IV (16:36)
[2020-06-16] MEDS: Heparin 5,000 UNITS/ML VIAL 5000 UNITS SC ×2 (16:48→23:40)
[2020-06-16 19:34] LABS: Troponin I 0.14 ng/mL (<0.06)
--- NOTE | 2020-06-16 19:45 | RT.EKG_ITS ---
APPROVED REPORT Exam: Resting ECG Patient Location: I HR:67 bpm ECG Measurements Heart Rate 67 AXIS ND 146 P 34 QRSd 96 QRS 25 QT 413 T 28 QTc 435 Conclusion Sinus rhythm...normal P axis, V-rate 60- 99 Normal Electrocardiogram
--- NOTE | 2020-06-16 19:53 | HPE_ITS ---
Date of service: 06/16/20 Time of Service: 19:53 Assessment and Plan Assessment and plan (1) Chronic nausea: Status: Acute Assessment and plan: Anxiety related to some degree? Had a similar experience in July of this year when her son was very in in the hospital. Possibility of gastroparesis also. Will try Reglan prn. H/O PUD in the distant past. Taking Pepcid. Begin Protonix. (2) Weakness: Status: Acute Assessment and plan: D/t poor intake. Describes anorexia and nausea with food intake intermittently. Will try to improve appetite with Marinol 2.5 mg BID; advance to 5 mg if nece ssary and tolerates (3) Elevated troponin: Status: Acute Assessment and plan: Troponin 0.11 and 0.14; 3rd is pending. No angina, dyspnea, SOA Echocardiogram to be considered. ED physician spoke with cardiology at [facility]. They did not suspect ACS; no anticoagulation at this time. (4) Anxiety: Status: Chronic Assessment and plan: Cont buspirone, sertraline, lorazapam. (5) Peptic ulcer of stomach: Status: Acute Assessment and plan: Initiate Nexium History of Present Illness History of Present Illness Chief Complaint: Elevated troponin Narrative: Patient is an 79-year-old female with a history of hypertension, hyperlipidemia, breast cancer with right mastectomy and uterine cancer with hysterectomy presents with nausea and decreased appetite for the last several weeks. She endorses little appetite throughout the day with nausea with eating, then with improvement in the evening but then returns the next day. She states she has been eating mostly broth and other bland foods during this time. No fever, cough, chest pain, shortness of breath, abdominal pain or diarrhea. She states she had diarrhea a few days ago but this has since resolved and she has been having normal bowel movements and denies any bleeding. She states her daughter has been helping her at home due to her fatigue and weakness with not eating and states that her daughter is sick with fever and respiratory symptoms. Daughter was tested for Covid-19 and results are pendings. Otherwise patient denies any recent travel, recent known exposure to coronavirus, recent antibiotics. Review of Systems All systems reviewed & are unremarkable except as noted in HPI and below [facility] Medical History Bladder prolapse, female, acquired Breast cancer HTN (hypertension) Hx of hyperlipidemia Nausea Peptic ulcer of stomach Urinary incontinence concurrent with and due to female genital prolapse Uterine cancer Weight loss Surgical History H/O: hysterectomy History of cholecystectomy Social History Smoking/Tobacco Use Status: Never Smoking risk assessment performed?: Yes Alcohol Intake: never Drug use: Never Substance use type: does not use Do you feel safe at home: Yes Do you feel safe in your relationship?: Yes Meds Home Medications and Allergies Home Medications Medication Instructions Recorded Confirmed Type amlodipine 2.5 mg PO DAILY 08/09/19 06/16/20 History cholecalciferol (vitamin D3) 2,000 unit PO DAILY 08/09/19 06/16/20 History [Vitamin D3] diphenhydramine HCl [Benadryl] 25 mg PO Q6-12H 08/09/19 06/16/20 History fluticasone propionate 1 spray INTRANASAL DAILY 08/09/19 06/16/20 History garlic 1,500 mg PO QPC 08/09/19 06/16/20 History lisinopril 40 mg PO DAILY 08/09/19 06/16/20 History folic acid 0.4 mg PO DAILY 08/14/19 06/16/20 History atenolol 25 mg PO DAILY #0 tab 08/16/19 06/16/20 Rx famotidine [Heartburn Relief 10 mg PO BID #60 tab 08/16/19 06/16/20 Rx (famotidine)] lorazepam 0.25 mg PO TID PRN PRN #0 tab 08/16/19 06/16/20 Rx Allergies Allergy/AdvReac Type Severity Reaction Status Date / Time amoxicillin [From Augmentin] Allergy Skin Rash Unverified 06/16/20 13:16 aspirin Allergy Unverified 06/16/20 15:25 clavulanic acid Allergy Skin Rash Unverified 06/16/20 13:16 [From Augmentin] lactose Allergy Other (See Unverified 06/16/20 13:16 Comment) penicillin V Allergy Skin Rash Unverified 06/16/20 13:16 atorvastatin AdvReac Other (See Unverified 06/16/20 13:16 Comment) buspirone [From BuSpar] AdvReac Other (See Unverified 06/16/20 13:16 Comment) caffeine AdvReac Other (See Unverified 06/16/20 13:16 Comment) doxycycline AdvReac Other (See Unverified 06/16/20 13:16 Comment) erythromycin base AdvReac Other (See Unverified 06/16/20 13:16 Comment) esomeprazole [From Nexium] AdvReac Headache Unverified 06/16/20 13:16 ezetimibe [From Zetia] AdvReac Diarrhea Unverified 06/16/20 13:16 fexofenadine AdvReac Other (See Unverified 06/16/20 13:16 Comment) gluten AdvReac Other (See Unverified 06/16/20 13:16 Comment) hydrochlorothiazide AdvReac Other (See Unverified 06/16/20 13:16 Comment) loratadine AdvReac Other (See Unverified 06/16/20 13:16 Comment) sertraline AdvReac Other (See Unverified 06/16/20 13:16 Comment) Sulfa (Sulfonamide AdvReac Nausea Unverified 06/16/20 13:16 Antibiotics) Exam Const General: cooperative and no acute distress Nutritional Appearance: underweight Orientation: alert and oriented x3 HENMT Head: normocephalic and atraumatic Neck Neck: full ROM Resp Effort & Inspection: normal respiratory effort Auscultation: clear to auscultation bilaterally Cardio Rate: regular rate Rhythm: regular rhythm Heart Sounds: S1 normal and S2 normal GI Palpation: soft and nontender Auscultation: normal bowel sounds Skin General skin exam: no rashes or lesions noted Extrem General: no pedal edema and no calf tenderness Results Labs Result diagrams: 06/16/20 13:50 06/16/20 13:50 Labs: Laboratory Results - last 24 hr 06/16/20 06/16/20 06/16/20 13:04 13:30 13:30 WBC Cancelled RBC Cancelled Hgb Cancelled Hct Cancelled MCV Cancelled MCH Cancelled MCHC Cancelled RDW Cancelled Plt Count Cancelled MPV Cancelled Immature Gran % Cancelled Neutrophils % Cancelled Band Neutrophils % Cancelled Lymphocytes % Cancelled Atypical Lymphs % Cancelled Monocytes % Cancelled Eosinophils % Cancelled Basophils % Cancelled Metamyelocytes % Cancelled Myelocytes % Cancelled Promyelocytes % Cancelled Other Cells % Cancelled Nucleated RBC % Cancelled Absolute Neutrophils Cancelled Absolute Lymphocytes Cancelled Absolute Monocytes Cancelled Absolute Eosinophils Cancelled Absolute Basophils Cancelled RBC Morphology Cancelled Polychromasia Cancelled Hypochromasia Cancelled Poikilocytosis Cancelled Basophilic Stippling Cancelled Anisocytosis Cancelled Microcytosis Cancelled Macrocytosis Cancelled Spherocytes Cancelled Tear Drop Cells Cancelled Ovalocytes Cancelled Stomatocytes Cancelled [place] Bodies Cancelled [place] Cells/Echinocytes Cancelled Acanthocytes (Spur) Cancelled Schistocytes Cancelled PT INR APTT Sodium Cancelled Potassium Cancelled Chloride Cancelled Carbon Dioxide Cancelled Anion Gap Cancelled BUN Cancelled Creatinine Cancelled Estimated GFR/1.73 m2 Cancelled Glucose Cancelled Calcium Cancelled Magnesium Cancelled Total Bilirubin Cancelled AST Cancelled ALT Cancelled Alkaline Phosphatase Cancelled Troponin I Cancelled Total Protein Cancelled Albumin Cancelled Lipase Cancelled Urine Color Yellow Urine Clarity Cloudy Urine pH 5.5 Ur Specific [place] 1.010 Urine Protein Negative Urine Ketones 40 H Urine Blood Trace-intact H Urine Nitrite Negative Urine Bilirubin Negative Urine Urobilinogen 0.2 Ur Leukocyte Esterase Negative Urine RBC Not Applicable Urine WBC Not Applicable Ur Epithelial Cells Many Urine Crystals Not Applicable Urine Bacteria Moderate Urine Mucus Not Applicable Ur Culture Indicated? No/sq. contamination Urine Glucose Negative 06/16/20 06/16/20 06/16/20 13:50 13:50 13:50 WBC 11.47 H RBC 4.82 Hgb 14.7 Hct 43.1 MCV 89.4 MCH 30.5 MCHC 34.1 RDW 12.2 Plt Count 356 MPV 10.5 Immature Gran % 0.3 Neutrophils % 76.4 Band Neutrophils % Lymphocytes % 17.9 Atypical Lymphs % Monocytes % 4.9 Eosinophils % 0.2 Basophils % 0.3 Metamyelocytes % Myelocytes % Promyelocytes % Other Cells % Nucleated RBC % 0 Absolute Neutrophils 8.76 H Absolute Lymphocytes 2.05 Absolute Monocytes 0.56 Absolute Eosinophils 0.02 Absolute Basophils 0.03 RBC Morphology Polychromasia Hypochromasia Poikilocytosis Basophilic Stippling Anisocytosis Microcytosis Macrocytosis Spherocytes Tear Drop Cells Ovalocytes Stomatocytes [place] Bodies [place] Cells/Echinocytes Acanthocytes (Spur) Schistocytes PT 11.5 H INR 1.1 APTT 25.4 Sodium 133 L Potassium 4.3 Chloride 98 Carbon Dioxide 22.7 Anion Gap 12.3 H BUN 14 Creatinine 0.69 Estimated GFR/1.73 m2 >= 60.00 Glucose 87 Calcium 9.2 Magnesium 1.8 Total Bilirubin 0.5 AST 26 ALT 30 Alkaline Phosphatase 58 Troponin I 0.11 H* Total Protein 7.7 Albumin 4.0 Lipase 335 Urine Color Urine Clarity Urine pH Ur Specific [place] Urine Protein Urine Ketones Urine Blood Urine Nitrite Urine Bilirubin Urine Urobilinogen Ur Leukocyte Esterase Urine RBC Urine WBC Ur Epithelial Cells Urine Crystals Urine Bacteria Urine Mucus Ur Culture Indicated? Urine Glucose 06/16/20 06/16/20 18:47 22:00 WBC RBC Hgb Hct MCV MCH MCHC RDW Plt Count MPV Immature Gran % Neutrophils % Band Neutrophils % Lymphocytes % Atypical Lymphs % Monocytes % Eosinophils % Basophils % Metamyelocytes % Myelocytes % Promyelocytes % Other Cells % Nucleated RBC % Absolute Neutrophils Absolute Lymphocytes Absolute Monocytes Absolute Eosinophils Absolute Basophils RBC Morphology Polychromasia Hypochromasia Poikilocytosis Basophilic Stippling Anisocytosis Microcytosis Macrocytosis Spherocytes Tear Drop Cells Ovalocytes Stomatocytes [place] Bodies [place] Cells/Echinocytes Acanthocytes (Spur) Schistocytes PT INR APTT Sodium Potassium Chloride Carbon Dioxide Anion Gap BUN Creatinine Estimated GFR/1.73 m2 Glucose Calcium Magnesium Total Bilirubin AST ALT Alkaline Phosphatase Troponin I 0.14 H* Cancelled Total Protein Albumin Lipase Urine Color Urine Clarity Urine pH Ur Specific [place] Urine Protein Urine Ketones Urine Blood Urine Nitrite Urine Bilirubin Urine Urobilinogen Ur Leukocyte Esterase Urine RBC Urine WBC Ur Epithelial Cells Urine Crystals Urine Bacteria Urine Mucus Ur Culture Indicated? Urine Glucose Last Vital Signs Temp 36 C L 06/16/20 16:14 Pulse 84 06/16/20 16:26 Resp 18 06/16/20 16:14 BP 151/81 H 06/16/20 16:14 Pulse Ox 96 06/16/20 16:14 COVID-19 Screening Have you, or household traveled for leisure in last 14 days?: No Had IN PERSON contact w/suspected or confirmed C-19 person: No
[2020-06-16] MEDS: Pantoprazole 40 MG VIAL IVP (21:22)
[2020-06-16] MEDS: LORazepam 0.5 MG TAB 0.25 MG PO (23:41)
[2020-06-16] MEDS: Acetaminophen 325 MG TAB 650 MG PO (23:43)
--- NOTE | 2020-06-17 | DI.US_ITS ---
APPROVED REPORT EXAM: Comprehensive 2D, Doppler, and color-flow Echocardiogram Patient Location: In-Patient Room/Bed: 216 Nurse Licensed Practical: Radha Barboza RDCS (AE) Indications: Elevated troponin Other Information Study Quality: Adequate Conclusion Normal left ventricular wall thickness and chamber size. Estimated ejection fraction is 55 to 60%. There are no segmental wall motion abnormalities Normal right ventricular size and systolic function Both atria are normal in size The aortic valve is trileaflet and sclerotic without stenosis or regurgitation Moderate mitral annular calcification. Thickened mitral leaflets. Mild mitral regurgitation The tricuspid valve is structurally normal. Trace to mild tricuspid regurgitation. Normal estimated right ventricular systolic pressure The pulmonic valve is structurally normal with trace regurgitation Wall motion Left Ventricle The left ventricle is normal size. The left ventricular systolic function is normal. The left ventric ular ejection fraction is within the normal range. There is normal left ventricular wall thickness. T here is normal LV segmental wall motion. There is no ventricular septal defect visualized. LVEF is 55 60%. Right Ventricle The right ventricle is normal size. The right ventricular systolic function is normal. The RVSP is 21 .9 mmHg. Atria The left atrium size is normal. The right atrium size is normal. The interatrial septum is intact wit h no evidence for an atrial septal defect. Aortic Valve The Aortic valve is sclerotic. Aortic valve is calcified. Aortic valve is trileaflet. There is no aor tic valvular stenosis. No aortic regurgitation is present. Mitral Valve Moderate mitral annular calcification. No evidence of mitral valve stenosis. Mild mitral regurgitatio n. Tricuspid Valve The tricuspid valve is normal in structure. There is no tricuspid valve stenosis. Trace to mild tricu spid regurgitation. Pulmonic Valve The pulmonary valve is normal in structure. There is no pulmonic valvular stenosis. Trace pulmonic re gurgitation. Great Vessels The aortic root is normal in size. The ascending aorta is normal in size. IVC is normal in size and c ollapses >50% with inspiration. Pericardium There is no pericardial effusion. 2D Dimensions IVSD d PLAX 0.83 cm F: 0.6-1.0 LV Vol A2C d MOD 70.3 mL LVPW d PLAX 0.81 cm F: 0.6 - 1.0 LV Vol A4C d MOD 60.6 mL LVID d PLAX 3.69 cm F: 3.8 - 5.2 LA vol/ BSA A2C s A-L 27.5 mL/m2 LVDs 2.70 cm F: 2.2 - 3.5 LA vol/ BSA A4C s A-L 19.7 mL/m2 Ao Root d 2.73 cm F: 2.7 - 3.3 LA Vol/ BSA Biplane s A-L 25.3 mL/m2 RA Area A4C 7.05 cm2 LA Area A4C s MOD 12.33 cm2 RA Vol/ BSA A4C s A-L 8.2 mL/m2 LA Area A2C s MOD 15.80 cm2 Ao Asc Diam d 2.67 cm F: 2.3 - 3.1 LV EF A4C MOD 56.4 % LV EF Teichholz 53.0 % LV EF A2C MOD 55.3 % LVEF (Christensen's) 56.70 % F: 54 - 74 LV EF Biplane MOD 56.7 % LV Volume 55.22 mL F: 46 - 106 SV 37.82 mL LV Volume Index 36.32 mL/m2 F: 29 - 61 SV Index 24.79 mL/m2 LV Vol Biplane MOD 66.7 mL FS 26.65 % M-Mode TAPSE 2.44 cm (M/F) >1.7 LV Diastology MV E' medial 0.057 (>0.07 m/s) E/A Ratio 0.8 LV E/e MED 16.70 (<14) MV E Vmax 0.96 (0.4-1.3 m/s) MV E' lateral 0.060 (>0.1 m/s) MV A Vmax 1.15 (0.4-1.3 m/s) LV E/e LAT 16.00 (<14) MV E/A Ratio 0.81 MV E/E' medial 16.72 MV E/E' lateral 16.03 Aortic Valve LVOT Area 2.89 cm2 AoV Area Vmax 2.11 cm2 LVOT Vmax 1.07 m/s AoV Area/ BSA (Vmax) 1.38 cm2/m2 LVOT Mean Tashi. 0.66 m/s OMARI Mean Tashi. 1.86 cm2 LVOT Peak Grad 4.6 mmHg OMARI Mean Tashi. Index 1.22 cm2/m2 LVOT Mean Grad 2.1 mmHg LVOT VTI 0.245 m LVOT Diam s 1.90 cm AoV Vmax 1.47 m/s Velocity Ratio 0.72 AoV Mean Tashi. 1.03 m/s AoV Peak Grad 8.7 mmHg LVOT SV 70.98 mL AoV Mean Grad 4.9 mmHg AoV VTI 0.355 m AoV Area VTI 2.00 cm2 AoV Area/ BSA (VTI) 1.31 cm/m2 Mitral Valve MV DT 271 (160-240 msec) MR Vmax 4.86 m/s MV PHT 79 msec MR VTI 1.428 m MV Area PHT 2.79 cm2 MR Peak Grad 94.7 mmHg MV VTI 0.423 m MR Mean Grad 70.0 mmHg MV VTI Annulus 0.440 m MV Area VTI 1.75 (4.0-6.0 cm2) Pulmonary Valve PV Vmax 1.06 (0.5-1.5 m/s) RVOT Peak Gr. 1.17 mmHg PV Peak Grad 4.5 mmHg RVOT Mean Gr. 0.70 mmHg PV Mean Grad 2.8 mmHg RVOT VTI 0.150 m PV VTI 0.250 m RVOT Vmax 0.54 m/s Tricuspid Valve TR Peak Grad 18.9 mmHg TR Vmax 2.18 m/s RA Pressure 3.00 mmHg RVSP (TR) 21.9 mmHg
[2020-06-17] MEDS: Normal Saline 1,000 ML 75 ML IV (05:18)
[2020-06-17 07:36] LABS: Abs Immature Grans 0.04 10^3/uL (0.0-0.06); Absolute Basophil Count 0.04 10^3/uL (0.0-0.2); Absolute Eosinophil Count 0.06 10^3/uL (0.0-0.7); Absolute Lymphocyte Count 2.19 10^3/uL (1.2-3.4); Absolute Monocyte Count 0.64 10^3/uL (0.1-0.8); Absolute Neutrophil Count 4.91 10^3/uL (1.2-6.7); Basophils % 0.5; Eosinophils % 0.8; HCT 38.6 % (36.0-46.0); HGB 13.2 g/dL (11.2-15.7); Immature Grans % 0.5; Lymphocytes % 27.8; MCHC 34.2 % (32.0-36.0); MCV 90.6 fL (80-95); Monocytes % 8.1; Neutrophils % 62.3; Nucleated RBC 0 %; Platelet Count 287 10^3/uL (130-400); RBC 4.26 10^6/uL (3.93-5.22); RDW 12.6 % (11.7-14.6); RDW-SD 41.8 fL; WBC 7.88 10^3/uL (4.4-10.8)
[2020-06-17 07:52] LABS: Anion Gap 15.5 mmol/L (3-11); BUN 13 mg/dL (7-18); CO2 17.5 mmol/L (21.0-32.0); CREATININE 0.67 mg/dL (0.55-1.02); Calcium 8.4 mg/dL (8.5-10.1); Chloride 103 mmol/L (98-107); Glucose 66 mg/dL (74-106); Magnesium 1.9 mg/dL (1.8-2.4); Potassium 4.3 mmol/L (3.5-5.1); Sodium 136 mmol/L (136-145)
[2020-06-17 07:57] LABS: Troponin I 0.12 ng/mL (<0.06)
[2020-06-17 07:58] VITALS: PULSE 69
[2020-06-17 08:21] VITALS: BP 130/76; PULSE 69; RESP 16; TEMP 36; O2SAT 97
[2020-06-17] MEDS: amLODIPine 2.5 MG TAB PO (08:22)
[2020-06-17] MEDS: Heparin 5,000 UNITS/ML VIAL 5000 UNITS SC (08:22)
[2020-06-17] MEDS: Lisinopril 20 MG TAB 40 MG PO (08:22)
[2020-06-17] MEDS: Atenolol 25 MG TAB PO (08:23)
[2020-06-17] MEDS: Dronabinol 2.5 MG CAP PO (08:23)
[2020-06-17 08:36] LABS: COVID-19 RT-PCR UVMMC Result Negative (Negative)
--- NOTE | 2020-06-17 09:05 | INITIAL_ITS ---
- If Service Date Differs Date of service: 06/17/20 Time of Service: 09:05 Care Management Initial Assess REASON FOR HOSPITALIZATION:: Chronic Nausea PAST MEDICAL HISTORY/PAST SURGICAL HISTORY:: Medical History . Bladder prolapse, female, acquired. Breast cancer. HTN (hypertension). Hx of hyperlipidemia. Nausea. Peptic ulcer of stomach. Urinary incontinence concurrent with and due to female genital prolapse. Uterine cancer. Weight loss. Surgical History . H/O: hysterectomy. History of cholecystectomy PREVIOUS FUNCTIONAL STATUS/SOCIAL/FAMILY SUPPORTS:: Alyssa lives in a shelter community in [place], [place]. She has 10 children; 9 are living. She also has 31 grandchildren and 18 great grandchildren. Alyssa reports a supportive family and she is able to care for herself at home although she depends on her family for transporation. Alyssa states she uses a walker at home and has been with her primary care practice for 60 years. Alyssa's [facility] in [facility] from [facility] cancer. CURRENT FUNCTIONAL STATUS:: Alyssa was sitting up in bed when CM met with her. She was open to conversation and engaged readily. Alyssa shared information about the shelter community she lives in and also about her very large and supportive family. She anticipates returning home soon. ADVANCE DIRECTIVES:: None on file. Declined at this time. Has patient been provided with info about the portal/API?: Yes Did the patient sign up for the portal?: No CODE STATUS:: Full Code INSURANCE COVERAGE / FINANCIAL ISSUES:: Medicare. Medicaid CURRENT HOME/COMMUNITY SERVICES/EQUIPMENT:: walker and a cane PRIMARY CARE PHYSICIAN:: Shruthi Joya POTENTIAL DISCHARGE NEEDS:: Follow up with PCP and discharge plan of care PATIENT/FAMILY EDUCATION NEEDS:: Discharge plan, limitations, follow up plan, Ask Me Three TRANSPORTATION:: via private vehicle with family PLAN:: Alyssa will be discharged home with no new services. She will follow up with her PCP and discharge plan of care. Alyssa will transport home with family.
[2020-06-17] MEDS: Metoclopramide 10 MG/2 ML VIAL IVP (10:07)
[2020-06-17] MEDS: Fluticasone NASAL SPRAY 16 GM BTL NS (10:08)
[2020-06-17] MEDS: LORazepam 0.5 MG TAB 0.25 MG PO (10:36)
[2020-06-17 11:18] VITALS: BP 145/76; PULSE 60; RESP 18; TEMP 36.5; O2SAT 98
--- NOTE | 2020-06-17 13:11 | W.PM.DS.N ---
Date of service: 06/17/20 Time of Service: 13:12 DS: Diagnosis Discharge Diagnosis (1) Chronic nausea: Status: Acute (2) Weakness: Status: Acute (3) Elevated troponin: Status: Acute (4) Anxiety: Status: Chronic (5) Peptic ulcer of stomach: Status: Acute Discharge Plan Disposition Patient Disposition: HOME Condition: Stable Discharge Details Reason For Visit: CHRONIC NAUSEA,PORR APPETITE,FATIGUE,ELEV TROPONIN Admit Date/Time: 06/16/20 15:08 Admit Provider: Jace Coello Attending Provider: Jace Coello Primary Care Provider: [facility] Course Hospital Course: Patient is an 79-year-old female with a history of hypertension, hyperlipidemia, breast cancer with right mastectomy and uterine cancer with hysterectomy presents with nausea and decreased appetite for the last several weeks. She endorses little appetite throughout the day with nausea with eating, then with improvement in the evening but then returns the next day. She states she has been eating mostly broth and other bland foods during this time. No fever, cough, chest pain, shortness of breath, abdominal pain or diarrhea. She states she had diarrhea a few days ago but this has since resolved and she has been having normal bowel movements and denies any bleeding. She states her daughter has been helping her at home due to her fatigue and weakness with not eating and states that her daughter is sick with fever and respiratory symptoms. Daughter was tested for Covid-19 and results are pendings. Otherwise patient denies any recent travel, recent known exposure to coronavirus, recent antibiotics. Her COVID-19 test was subsequently negative. She also endorsed, during the course of this stay, that she has lactose intolerance and Irritable Bowel Syndrome. Her troponin levels remained flat at 0.11, 0.14, 0.12. Echo cardiogram showed no wall motion abnormalities with an EF of 55-60%. The aortic valve wa sclerotic w/o stenosis or regurgitation. Mild mitral regurgitation and moderate mitral annular calcifications noted. She continued to deny CP, palpitations, SOA. She did have nausea on the AM of discharge. This ocurred after a dose of marinol and she felt this may have been the etiology. IV Reglan given and her nausea eventually abated. Her pattern at home is a waxing/waning nausea so it is unclear whether the Reglan was instrumental in relieving her symptoms or not. The decision was made not to d/c with prn Reglan or the Marinol. Evaluation by manager field investigations would be very prudent. F/U with PCP in 1 week Arrange GI evaluation as outpatient at [facility] [place] Meds and New Rx's Prescriptions: New polyethylene glycol 3350 17 gram Powder In Packet 17 g PO DAILY PRN PRN (Reason: Constipation) Qty: 0 RF: 0 Continued amlodipine 2.5 mg Tablet 2.5 mg PO DAILY RF: 0 garlic 1,500 mg Capsule 1,500 mg PO QPC RF: 0 diphenhydramine HCl [Benadryl] 25 mg Capsule 25 mg PO Q6-12H RF: 0 lisinopril 40 mg Tablet 40 mg PO DAILY RF: 0 fluticasone propionate 50 mcg/actuation [place],Suspension 1 spray INTRANASAL DAILY RF: 0 cholecalciferol (vitamin D3) [Vitamin D3] 2,000 unit Tablet 2,000 unit PO DAILY RF: 0 folic acid 400 mcg Tablet 0.4 mg PO DAILY RF: 0 famotidine [Heartburn Relief (famotidine)] 10 mg tablet 10 mg PO BID Qty: 60 RF: 0 lorazepam 0.5 mg Tablet 0.25 mg PO TID PRN PRNQty: 0 RF: 0 atenolol 50 mg Tablet 25 mg PO DAILY Qty: 0 RF: 0 Discharge Instructions Instructions: Irritable Bowel Syndrome (GEN) Activity:: Activity as Tolerated Equipment/Supplies:: No Equipment Needed Diet:: As Tolerated DS: Summary Status at Discharge Functional status at discharge: independent ambulation Overall status at discharge: patient is not back to baseline Mental Status: mental status grossly normal Speech and Movement: speech and movement normal Mood: anxious mood Affect: anxious affect Exam Const General: cooperative, no acute distress and anxious Nutritional Appearance: overweight Orientation: alert and oriented x3 Resp Effort & Inspection: normal respiratory effort Auscultation: clear to auscultation bilaterally Cardio Rate: regular rate Rhythm: regular rhythm Heart Sounds: S1 normal and S2 normal GI Palpation: soft and nontender Auscultation: hyperactive bowel sounds Extrem General: no pedal edema Psych Mental Status: mental status grossly normal Speech and Movement: speech and movement normal Mood: anxious mood Affect: anxious affect DS: Data Vitals/I&O Vitals and I&O: Vital Signs Temperature 36.5 C 06/17/20 11:18 Temperature Source Temporal Artery Scan 06/17/20 11:18 Pulse 60 06/17/20 11:18 Pulse Rhythm Regular 06/17/20 09:09 Pulse 114 H 06/16/20 15:40 Respiratory Rate 18 06/17/20 11:18 Respiratory Effort Non-Labored 06/17/20 09:09 Respiratory Depth Normal 06/17/20 09:09 Respiratory Pattern Normal 06/17/20 09:09 Blood Pressure 145/76 H 06/17/20 11:18 Blood Pressure Mean 80 06/16/20 12:31 Pulse Oximetry 98 06/17/20 11:18 Oxygen Delivery Method Room Air 06/17/20 11:18 Oxygen Flow Rate 0 06/17/20 11:18 Pain Level 0 06/17/20 11:18 Intake & Output 06/16/20 06/17/20 06/17/20 23:59 11:59 23:59 Intake Total 250 / 250 1360.0 / 1360.0 Output Total 200 / 200 1200 / 1200 Balance 50 / 50 160.0 / 160.0 Weight 63.503 kg Intake: IV 1360.0 / 1360.0 Oral 250 / 250 Output: Urine 200 / 200 1200 / 1200 Other: Urine Color Yellow Yellow Urine Appearance Clear Clear Urine Odor Normal Stool Size Moderate Stool Characteristics Soft Voiding Methods Toilet Toilet Data Completed and Pending Labs on day of discharge: Labs from last 24 hours 06/17/20 06/17/20 06/16/20 07:06 07:06 22:00 WBC 7.88 D RBC 4.26 Hgb 13.2 Hct 38.6 MCV 90.6 MCH 31.0 MCHC 34.2 RDW 12.6 Plt Count 287 MPV 11.0 Immature Gran % 0.5 Neutrophils % 62.3 Band Neutrophils % Lymphocytes % 27.8 Atypical Lymphs % Monocytes % 8.1 Eosinophils % 0.8 Basophils % 0.5 Metamyelocytes % Myelocytes % Promyelocytes % Other Cells % Nucleated RBC % 0 Absolute Neutrophils 4.91 Absolute Lymphocytes 2.19 Absolute Monocytes 0.64 Absolute Eosinophils 0.06 Absolute Basophils 0.04 RBC Morphology Polychromasia Hypochromasia Poikilocytosis Basophilic Stippling Anisocytosis Microcytosis Macrocytosis Spherocytes Tear Drop Cells Ovalocytes Stomatocytes Phillips-Harrison Bodies [place] Cells/Echinocytes Acanthocytes (Spur) Schistocytes PT INR APTT Sodium 136 Potassium 4.3 Chloride 103 Carbon Dioxide 17.5 L Anion Gap 15.5 H BUN 13 Creatinine 0.67 Estimated GFR/1.73 m2 >= 60.00 Glucose 66 L Calcium 8.4 L Magnesium 1.9 Total Bilirubin AST ALT Alkaline Phosphatase Troponin I 0.12 H* Cancelled Total Protein Albumin Lipase Urine Color Urine Clarity Urine pH Ur Specific [place] Urine Protein Urine Ketones Urine Blood Urine Nitrite Urine Bilirubin Urine Urobilinogen Ur Leukocyte Esterase Urine RBC Urine WBC Ur Epithelial Cells Urine Crystals Urine Bacteria Urine Mucus Ur Culture Indicated? Urine Glucose COVID-19 PCR Nasopharyn COVID-19 PCR Ref Test Perform Site 06/16/20 06/16/20 06/16/20 18:47 15:20 13:50 WBC 11.47 H RBC 4.82 Hgb 14.7 Hct 43.1 MCV 89.4 MCH 30.5 MCHC 34.1 RDW 12.2 Plt Count 356 MPV 10.5 Immature Gran % 0.3 Neutrophils % 76.4 Band Neutrophils % Lymphocytes % 17.9 Atypical Lymphs % Monocytes % 4.9 Eosinophils % 0.2 Basophils % 0.3 Metamyelocytes % Myelocytes % Promyelocytes % Other Cells % Nucleated RBC % 0 Absolute Neutrophils 8.76 H Absolute Lymphocytes 2.05 Absolute Monocytes 0.56 Absolute Eosinophils 0.02 Absolute Basophils 0.03 RBC Morphology Polychromasia Hypochromasia Poikilocytosis Basophilic Stippling Anisocytosis Microcytosis Macrocytosis Spherocytes Tear Drop Cells Ovalocytes Stomatocytes Phillips-Harrison Bodies [place] Cells/Echinocytes Acanthocytes (Spur) Schistocytes PT INR APTT Sodium Potassium Chloride Carbon Dioxide Anion Gap BUN Creatinine Estimated GFR/1.73 m2 Glucose Calcium Magnesium Total Bilirubin AST ALT Alkaline Phosphatase Troponin I 0.14 H* Total Protein Albumin Lipase Urine Color Urine Clarity Urine pH Ur Specific [place] Urine Protein Urine Ketones Urine Blood Urine Nitrite Urine Bilirubin Urine Urobilinogen Ur Leukocyte Esterase Urine RBC Urine WBC Ur Epithelial Cells Urine Crystals Urine Bacteria Urine Mucus Ur Culture Indicated? Urine Glucose COVID-19 PCR Negative Nasopharyn COVID-19 PCR Not Applicable Ref Test Perform Site [facility] 06/16/20 06/16/20 06/16/20 13:50 13:50 13:30 WBC Cancelled RBC Cancelled Hgb Cancelled Hct Cancelled MCV Cancelled MCH Cancelled MCHC Cancelled RDW Cancelled Plt Count Cancelled MPV Cancelled Immature Gran % Cancelled Neutrophils % Cancelled Band Neutrophils % Cancelled Lymphocytes % Cancelled Atypical Lymphs % Cancelled Monocytes % Cancelled Eosinophils % Cancelled Basophils % Cancelled Metamyelocytes % Cancelled Myelocytes % Cancelled Promyelocytes % Cancelled Other Cells % Cancelled Nucleated RBC % Cancelled Absolute Neutrophils Cancelled Absolute Lymphocytes Cancelled Absolute Monocytes Cancelled Absolute Eosinophils Cancelled Absolute Basophils Cancelled RBC Morphology Cancelled Polychromasia Cancelled Hypochromasia Cancelled Poikilocytosis Cancelled Basophilic Stippling Cancelled Anisocytosis Cancelled Microcytosis Cancelled Macrocytosis Cancelled Spherocytes Cancelled Tear Drop Cells Cancelled Ovalocytes Cancelled Stomatocytes Cancelled Phillips-Harrison Bodies Cancelled [place] Cells/Echinocytes Cancelled Acanthocytes (Spur) Cancelled Schistocytes Cancelled PT 11.5 H INR 1.1 APTT 25.4 Sodium 133 L Potassium 4.3 Chloride 98 Carbon Dioxide 22.7 Anion Gap 12.3 H BUN 14 Creatinine 0.69 Estimated GFR/1.73 m2 >= 60.00 Glucose 87 Calcium 9.2 Magnesium 1.8 Total Bilirubin 0.5 AST 26 ALT 30 Alkaline Phosphatase 58 Troponin I 0.11 H* Total Protein 7.7 Albumin 4.0 Lipase 335 Urine Color Urine Clarity Urine pH Ur Specific [place] Urine Protein Urine Ketones Urine Blood Urine Nitrite Urine Bilirubin Urine Urobilinogen Ur Leukocyte Esterase Urine RBC Urine WBC Ur Epithelial Cells Urine Crystals Urine Bacteria Urine Mucus Ur Culture Indicated? Urine Glucose COVID-19 PCR Nasopharyn COVID-19 PCR Ref Test Perform Site 06/16/20 06/16/20 13:30 13:04 WBC RBC Hgb Hct MCV MCH MCHC RDW Plt Count MPV Immature Gran % Neutrophils % Band Neutrophils % Lymphocytes % Atypical Lymphs % Monocytes % Eosinophils % Basophils % Metamyelocytes % Myelocytes % Promyelocytes % Other Cells % Nucleated RBC % Absolute Neutrophils Absolute Lymphocytes Absolute Monocytes Absolute Eosinophils Absolute Basophils RBC Morphology Polychromasia Hypochromasia Poikilocytosis Basophilic Stippling Anisocytosis Microcytosis Macrocytosis Spherocytes Tear Drop Cells Ovalocytes Stomatocytes Phillips-Harrison Bodies [place] Cells/Echinocytes Acanthocytes (Spur) Schistocytes PT INR APTT Sodium Cancelled Potassium Cancelled Chloride Cancelled Carbon Dioxide Cancelled Anion Gap Cancelled BUN Cancelled Creatinine Cancelled Estimated GFR/1.73 m2 Cancelled Glucose Cancelled Calcium Cancelled Magnesium Cancelled Total Bilirubin Cancelled AST Cancelled ALT Cancelled Alkaline Phosphatase Cancelled Troponin I Cancelled Total Protein Cancelled Albumin Cancelled Lipase Cancelled Urine Color Yellow Urine Clarity Cloudy Urine pH 5.5 Ur Specific [place] 1.010 Urine Protein Negative Urine Ketones 40 H Urine Blood Trace-intact H Urine Nitrite Negative Urine Bilirubin Negative Urine Urobilinogen 0.2 Ur Leukocyte Esterase Negative Urine RBC Not Applicable Urine WBC Not Applicable Ur Epithelial Cells Many Urine Crystals Not Applicable Urine Bacteria Moderate Urine Mucus Not Applicable Ur Culture Indicated? No/sq. contamination Urine Glucose Negative COVID-19 PCR Nasopharyn COVID-19 PCR Ref Test Perform Site [facility] Medical History Bladder prolapse, female, acquired Breast cancer HTN (hypertension) Hx of hyperlipidemia Nausea Peptic ulcer of stomach Urinary incontinence concurrent with and due to female genital prolapse Uterine cancer Weight loss Surgical History H/O: hysterectomy History of cholecystectomy Social History Smoking/Tobacco Use Status: Never Smoking risk assessment performed?: Yes Alcohol Intake: never Drug use: Never Substance use type: does not use Do you feel safe at home: Yes Do you feel safe in your relationship?: Yes
[2020-06-17 14:15] VITALS: PULSE 44
--- NOTE | 2020-06-17 15:15 | PDOC.CMDIS ---
- If Service Date Differs Date of service: 06/17/20 Time of Service: 15:15 LACE Index Scoring Tool - Questions: Length of Stay (in days): 1 Acuity (Admit via E.D.?): Yes Comorbidities: Any Tumor E.D. Visits: 3 - Answers: Total Score: 9 Risk of Readmission: Low Risk Care Management Discharge Reason for Hospitalization: Chronic Nausea Discharge Plan: Alyssa will be discharged home with no new services. She will follow up with her PCP and discharge plan of care. Alyssa will transport home with family. Patient/Family Education Needs: Discharge plan, limitations, follow up plan, Ask Me Three
== END 2020-06-17 14:59 | disposition home or self-care (01) ==
LOC: ER 15:08 → MS 15:57
PROVIDERS: Admitting Provider Family Medicine; Emergency Provider Physician Assistant; PCP Nurse Practitioner Family; Visit Provider Family Medicine
DX: R53.1 Weakness (principal); R11.0 Nausea; R74.8 Abnormal levels of other serum enzymes; F41.9 Anxiety disorder, unspecified; I10 Essential (primary) hypertension; E78.5 Hyperlipidemia, unspecified; Z85.3 Personal history of malignant neoplasm of breast; Z85.42 Personal history of malignant neoplasm of other parts of uterus; Z11.59 Encounter for screening for other viral diseases; I08.0 Rheumatic disorders of both mitral and aortic valves
CPT/HCPCS: 36415; 74177; 80048; 80053; 83690; 93005; 93306; 96361; 96365; 96375; 99217; 99219; 99285; U0003; 71260; 81003; 81015; 83735; 84484; 85025; 85610; 85730; 93010; G0378; J1644; J2405; J2765; J3490

== ENCOUNTER 2025-01-19 15:54 | Emergency (ER) | payer MEDICARE, MEDICAID, SELFPAY ==
[2025-01-19 15:55] VITALS: BP 158/97; PULSE 108; RESP 18; TEMP 36.4; O2SAT 98
[2025-01-19 15:58] VITALS: BP 158/97; PULSE 108; RESP 18; TEMP 36.4; O2SAT 98
--- NOTE | 2025-01-19 16:19 | W.ED.GENAD ---
Discharge Plan Disposition Patient Disposition: Home Discharge Details Clinical Impression: Acute UTI Primary Care Provider: Hansa Montenegro ED Provider: Dwight Trammell Home Meds and New Rx's Prescriptions: New cephalexin 250 mg capsule 250 mg PO QID 5 Days Qty: 20 0RF Continued amlodipine 2.5 mg Tablet 2.5 mg PO DAILY garlic 1,500 mg Capsule 1,500 mg PO QPC diphenhydramine HCl [Benadryl] 25 mg Capsule 25 mg PO Q6-12H fluticasone propionate 50 mcg/actuation Lindsey,Suspension 1 spray INTRANASAL DAILY cholecalciferol (vitamin D3) [Vitamin D3] 2,000 unit Tablet 2,000 unit PO DAILY lisinopril 40 mg tablet 2.5 mg PO DAILY folic acid 400 mcg Tablet 0.4 mg PO DAILY famotidine [Heartburn Relief (famotidine)] 10 mg tablet 10 mg PO BID Qty: 60 0RF lorazepam 0.5 mg Tablet 0.25 mg PO TID PRN PRNQty: 0 0RF Rx Instructions: take 1/2 tablet in am. take 1/2 tablet in evening Discharge Instructions Instructions: Urinary Tract Infection, Adult ED Additional Instructions: You are seen in the emergency department for your burning while urinating. Your urinalysis was concerning for the possibility of urinary tract infection for which you are receiving antibiotics. You received a dose of antibiotics today. Please begin taking this prescription for antibiotics tomorrow. Please return to the emergency department if you cannot eat or drink as result of nausea or vomiting if you develop any abdominal pain confusion or if you have any other concerns. Otherwise please follow-up with your primary care provider next week. HPI General Date/Time Provider Initiated Documentation: 01/19/25 16:18. HPI Narrative: MDM This is an overall very well-appearing initially tachycardic but normotensive and normothermic 85-year-old female with dysuria and frequency and urinalysis concerning for acute UTI for which patient will receive 2 g of ceftriaxone following assessment of labs. I considered sepsis as the patient was initially tachycardic however tachycardia resolved within several minutes in the emergency department. As result I did not feel the patient required broad-spectrum antibiotics nor blood cultures nor assessment of lactate. Soft nontender abdomen so I am not suspicious for intra-abdominal infection. Specifically no right lower quadrant tenderness to suggest appendicitis. No left lower quadrant tenderness to suggest diverticulitis. No rash to abdomen to suggest zoster. No pain out of proportion to suggest necrotizing soft tissue infection. No lateralizing flank pain nor history of nephrolithiasis to suggest increased risk for ureterolithiasis so I did not feel that the patient required a CT scan. No significant abdominal pain to suggest ruptured AAA. Given age will assess renal function. Patient is quite well-appearing so anticipate she will be discharged. 6:15 PM Patient's urinalysis showed moderate leuk esterase large blood but was nitrite negative. Given symptoms we will proceed with treatment. Culture will reflex. Patient's renal function showed no ARACELI. She had no acute electrolyte abnormalities. Her CBC was notable for a leukocytosis to 17.4. She continued to have a normal heart rate. I offered her hospitalization based on her age. She declined. She received 2 g of ceftriaxone in the ED. We discussed that she should return for fevers nausea vomiting or inability tolerate her antibiotics. I treated her with cephalexin. She understood her return indications and was discharged with empiric trial of expectant outpatient management. History of Present Illness The patient is an 84-year-old female who presents for evaluation of a urinary tract infection. She is accompanied by her daughter and son-in-law. She reports experiencing dysuria, which she attributes to a UTI. The onset of symptoms was this morning. She describes the pain as severe during micturition and occasionally experiences urinary hesitancy despite the urge to void. Her medical history includes recurrent UTIs, with the most recent episode occurring several months ago. She reports no associated nausea, vomiting, or respiratory distress. She also has no known history of nephrolithiasis. Her health status yesterday was unremarkable. Exam General: Well-appearing in no acute distress speaking in complete sentences. Head: Normocephalic, atraumatic. Eye: Extraocular eye movements intact. No conjunctival injection. No scleral icterus. Ear, nose, mouth, throat: Grossly normal inspection. Normal voice, handling secretions normally. Neck: Trachea midline. Cardiovascular: Well-perfused distal extremities. Respiratory: Nonlabored respiration. Gastrointestinal: Nondistended abdomen. Soft nontender abdomen. No rebound. No guarding. Musculoskeletal: No edema. Moving all 4 extremities spontaneously. Skin: Normal for age and race, grossly normal temperature and turgor. No acute rash. Neurologic: Alert and appropriate, no apparent acute deficits. Psychiatric: Mood and manner are appropriate. Grooming and personal hygiene are appropriate. Related Data Home Medications ?Medication ?Instructions ?Recorded ?Confirmed amlodipine 2.5 mg tablet 2.5 mg PO DAILY 08/09/19 01/19/25 cholecalciferol (vitamin D3) 50 2,000 unit PO DAILY 08/09/19 01/19/25 mcg (2,000 unit) tablet (Vitamin D3) diphenhydramine HCl 25 mg capsule 25 mg PO Q6-12H 08/09/19 01/19/25 (Benadryl) fluticasone propionate 50 1 spray intranasal DAILY 08/09/19 01/19/25 mcg/actuation nasal spray,suspension garlic 1,500 mg capsule 1,500 mg PO QPC 08/09/19 01/19/25 folic acid 400 mcg tablet 0.4 mg PO DAILY 08/14/19 01/19/25 famotidine 10 mg tablet (Heartburn 10 mg PO BID Gastritis/duodenitis 08/16/19 01/19/25 Relief (famotidine)) #60 tabs lorazepam 0.5 mg tablet 0.25 mg (1/2 x 0.5 mg) PO TID PRN 08/16/19 01/19/25 PRN #0 tabs lisinopril 40 mg tablet 2.5 mg PO DAILY 05/20/22 01/19/25 cephalexin 250 mg capsule 250 mg PO QID 5 days #20 caps 01/19/25 Previous Rx's ?Medication ?Instructions ?Recorded famotidine 10 mg tablet (Heartburn 10 mg PO BID Gastritis/duodenitis 08/16/19 Relief (famotidine)) #60 tabs lorazepam 0.5 mg tablet 0.25 mg (1/2 x 0.5 mg) PO TID PRN 08/16/19 PRN #0 tabs cephalexin 250 mg capsule 250 mg PO QID 5 days #20 caps 01/19/25 Allergies Allergy/AdvReac Type Severity Reaction Status Date / Time amoxicillin (From Augmentin) Allergy Skin Rash Unverified 01/19/25 15:59 aspirin Allergy Unknown Unverified 01/19/25 15:59 clavulanic acid (From Allergy Skin Rash Unverified 01/19/25 15:59 Augmentin) lactose Allergy Other (See Unverified 01/19/25 15:59 Comment) penicillin V Allergy Skin Rash Unverified 01/19/25 15:59 atorvastatin AdvReac Other (See Unverified 01/19/25 15:59 Comment) buspirone (From BuSpar) AdvReac Other (See Unverified 01/19/25 15:59 Comment) caffeine AdvReac Other (See Unverified 01/19/25 15:59 Comment) doxycycline AdvReac Other (See Unverified 01/19/25 15:59 Comment) erythromycin base AdvReac Other (See Unverified 01/19/25 15:59 Comment) esomeprazole (From Nexium) AdvReac Headache Unverified 01/19/25 15:59 ezetimibe (From Zetia) AdvReac Diarrhea Unverified 01/19/25 15:59 fexofenadine AdvReac Other (See Unverified 01/19/25 15:59 Comment) gluten AdvReac Other (See Unverified 01/19/25 15:59 Comment) hydrochlorothiazide AdvReac Other (See Unverified 01/19/25 15:59 Comment) loratadine AdvReac Other (See Unverified 01/19/25 15:59 Comment) sertraline AdvReac Other (See Unverified 01/19/25 15:59 Comment) Sulfa (Sulfonamide AdvReac Nausea Unverified 01/19/25 15:59 Antibiotics) General Stated Complaint: Urinary KATHY: 4 Course Vital Signs Vital signs: Vital Signs Temperature 36.4 C 01/19/25 15:55 Pulse 108 H 01/19/25 15:55 Respiratory Rate 18 01/19/25 15:55 Blood Pressure 158/97 H 01/19/25 15:55 Pulse Oximetry 98 01/19/25 15:55 Temperature 36.4 C 01/19/25 15:58 Pulse 108 H 01/19/25 15:58 Respiratory Rate 18 01/19/25 15:58 Blood Pressure 158/97 H 01/19/25 15:58 Pulse Oximetry 98 01/19/25 15:58 Pain Level 4 01/19/25 15:58 PFSH All Active Problems (Updated 01/19/25 @ 18:11 by Dwight Trammell MD) Acute UTI (Acute) Nail dystrophy (Acute) Chronic nausea (Acute) Fatigue (Acute) Weakness (Acute) Elevated troponin (Acute) Urinary incontinence concurrent with and due to female genital prolapse (Acute) Bladder prolapse, female, acquired (Acute) Anxiety (Chronic) Weight loss (Acute) Nausea (Acute) Breast cancer (Chronic) Peptic ulcer of stomach (Acute) Dehydration (Acute) Poor appetite (Acute) Medical History (Updated 01/19/25 @ 18:11 by Dwight Trammell MD) Hx of hyperlipidemia HTN (hypertension) Uterine cancer Surgical History H/O: hysterectomy History of cholecystectomy Social History Smoking/Tobacco Use Status: Never Smoking risk assessment performed?: Yes Alcohol Intake: never Drug use: Never Substance use type: does not use Do you feel safe at home: Yes Do you feel safe in your relationship?: Yes
[2025-01-19 16:24] LABS: Glucose Negative (Negative)
[2025-01-19 16:30] LABS: RBC 20-50 HPF (0-2); WBC 20-50 HPF (0-5)
[2025-01-19 16:31] LABS: C & S Indicated? Yes
[2025-01-19 17:17] LABS: Abs Immature Grans 0.05 10^3/uL (0.0-0.06); HCT 42.8 % (36.0-46.0); HGB 14.0 g/dL (11.2-15.7); Immature Grans % 0.3 %; MCH 29.4 pg (27.0-33.0); MCHC 32.7 % (32.0-36.0); MCV 90 fL (80-95); MPV 9.3 fL (8.0-11.0); Platelet Count 360 10^3/uL (130-400); RBC 4.76 10^6/uL (3.93-5.22); RDW 12.7 % (11.7-14.6); RDW-SD 41.9 fL; WBC 17.39 10^3/uL (4.4-10.8)
[2025-01-19 17:23] VITALS: PULSE 93; O2SAT 97
[2025-01-19 17:26] LABS: Anion Gap 8.4 mmol/L (3-11); BUN 17 mg/dL (7-18); CO2 31.6 mmol/L (21.0-32.0); Calcium 9.7 mg/dL (8.5-10.1); Chloride 98 mmol/L (98-107); Estimated GFR 91.86 (mL/min/1.73m2); Glucose 121 mg/dL (74-106); Potassium 4.3 mmol/L (3.5-5.1); Sodium 138 mmol/L (136-145)
[2025-01-19] MEDS: cefTRIAXone 2 GM/50 ML BAG IVPB (17:26)
== END 2025-01-19 18:31 | disposition home or self-care (01) ==
LOC: ER 18:34
PROVIDERS: Emergency Provider Emergency Medicine; PCP Nurse Practitioner Family
DX: N39.0 Urinary tract infection, site not specified (principal); R30.0 Dysuria; R31.9 Hematuria, unspecified; R35.0 Frequency of micturition; I10 Essential (primary) hypertension
CPT/HCPCS: 99284 ×2; 36415; 80048; 87077; 96365; 81003; 81015; 85025; 87086; 87186; J0696